=== PATIENT | male | born 1960 | race American Indian/Alaskan Native ===

== ENCOUNTER 2017-07-09 17:26 | Emergency (ER) | payer OTHER ==
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
[2017-07-09] MEDS ORDERED: MOTRIN PO ONE (22:14)
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
[2017-07-10] MEDS ORDERED: BOOSTRIX IM ONE (00:03)
[2017-07-10 00:49] VITALS: BP 172/117
== END 2017-07-10 00:44 | disposition home or self-care (01) ==
LOC: ED 17:26
DX: S81.812A Laceration without foreign body, left lower leg, initial encounter (principal); S50.812A Abrasion of left forearm, initial encounter; I10 Essential (primary) hypertension; I25.2 Old myocardial infarction; E11.9 Type 2 diabetes mellitus without complications; F17.200 Nicotine dependence, unspecified, uncomplicated; V89.0XXA Person injured in unspecified motor-vehicle accident, nontraffic, initial encounter; Y93.89 Activity, other specified; Y92.89 Other specified places as the place of occurrence of the external cause; Y99.8 Other external cause status
CPT/HCPCS: 90471; 90715

== ENCOUNTER 2018-03-04 14:51 | Emergency (ER) | payer MEDICAID ==
--- NOTE | 2018-03-04 15:41 | Emergency Department Report ---
ED Chest Pain HPI - General Chief Complaint: Chest Pain Stated Complaint: CHEST PAIN Time Seen by Provider: 03/04/18 15:31 Source: patient, EMS Mode of arrival: Stretcher Limitations: No Limitations - History of Present Illness Initial Comments: 57-year-old -Polish male presents to the emergency department from home with complaint of some left-sided chest pain that has been going on since last night. The pain radiates up the left side of his neck to the head. It is associated with some shortness of breath and some nausea without vomiting. The patient did not take anything specifically to treat his current symptoms but did take his home medications including a full dose aspirin. He has a past medical history of [id number] diabetes, CHF, COPD, hypertension and coronary artery disease with previous WI and [address] 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 He says that he had a stress test a few months ago down in [place] and everything was normal at that time. - Related Data Previous Rx's Medication Instructions Recorded Last Taken Type Acetaminophen [Tylenol Arthritis] 650 mg PO Q8H 5 Days #15 tablet.er 07/10/17 Unknown Rx Allergies Allergy/AdvReac Type Severity Reaction Status Date / Time No Known Allergies Allergy Unverified 07/09/17 18:45 Heart Score - HEART Score History: Moderately suspicious EKG: Non-specific Age: 45-65 Risk factors: > 3 risk factors or hx of atherosclerotic disease Troponin: < normal limit HEART Score: 5 - Critical Actions Critical Actions: 4-6 pts:12-16.6% risk of adverse cardiac event. Should be admitted ED Review of Systems ROS: Stated complaint: CHEST PAIN Other details as noted in HPI Comment: All other systems reviewed and negative Constitutional: denies: chills, fever Eyes: denies: eye pain, eye discharge, vision change ENT: denies: ear pain, throat pain Respiratory: shortness of breath. denies: cough Cardiovascular: chest pain. denies: edema Gastrointestinal: nausea. denies: abdominal pain, vomiting Genitourinary: denies: urgency, dysuria Musculoskeletal: denies: back pain, myalgia Skin: denies: rash, lesions Neurological: headache. denies: weakness, numbness ED Past Medical Hx - Past Medical History Hx Hypertension: Yes Hx Heart Attack/AMI: Yes (x2 days) Hx Congestive Heart Failure: Yes Hx Diabetes: Yes Hx COPD: Yes - Surgical History Hx Coronary Stent: Yes Additional Surgical History: stent in left leg; and stent in rt leg - Social History Smoking Status: Current Every Day Smoker Substance Use Type: Alcohol - Medications Home Medications: Home Medications Medication Instructions Recorded Confirmed Last Taken Type Acetaminophen [Tylenol Arthritis] 650 mg PO Q8H 5 Days #15 tablet.er 07/10/17 Unknown Rx ED Physical Exam - General Limitations: No Limitations - Other Other exam information: GENERAL: The patient is well-developed well-nourished. HENT: Normocephalic. Atraumatic. Patient has moist mucous membranes. EYES: Extraocular motions are intact. Pupils equal reactive to light bilaterally. NECK: Supple. Trachea is midline. CHEST/LUNGS: Clear to auscultation. There is no respiratory distress noted. HEART/CARDIOVASCULAR: Regular. There is no tachycardia. There is no murmur. ABDOMEN: Abdomen is soft, nontender. Patient has normal bowel sounds. There is no abdominal distention. SKIN: Skin is warm and dry. NEURO: The patient is awake, alert, and oriented. The patient is cooperative. The patient has no focal neurologic deficits. The patient has normal speech. MUSCULOSKELETAL: There is no tenderness or deformity. There is no limitation range of motion. There is no evidence of acute injury. ED Course Vital Signs 03/04/18 03/04/18 03/04/18 15:07 15:11 15:15 Pulse Rate 70 68 Respiratory 27 H 20 23 Rate Blood Pressure 109/65 109/65 O2 Sat by Pulse 96 97 Oximetry 03/04/18 03/04/18 15:30 15:45 Pulse Rate 71 98 H Respiratory 16 17 Rate Blood Pressure 109/65 109/65 O2 Sat by Pulse 96 97 Oximetry ENOCH score - Enoch Score Age > 65: (0) No Aspirin use within the Past 7 Days: (1) Yes 3 or more CAD Risk Factors: (1) Yes 2 or more Angina events in past 24 hrs: (1) Yes Known CAD with more than 50% Stenosis: (0) No Elevated Cardiac Markers: (0) No ST Deviation Greater than 0.5mm: (0) No ENOCH Score: 3 ED Medical Decision Making - Lab Data Result diagrams: 03/04/18 16:18 03/04/18 16:18 - EKG Data -: EKG Interpreted by Al EKG shows normal: sinus rhythm, axis, intervals, QRS complexes (Q waves to the inferior leads), ST-T waves (T-wave inversions to the lateral and inferior leads ) Rate: normal - EKG Data When compared to previous EKG there are: previous EKG unavailable Interpretation: other (sinus rhythm, Q waves to the inferior leads, T-wave inversions to the lateral and inferior leads) - Radiology Data Radiology results: report reviewed EXAM: XR CHEST 1V AP HISTORY: CP TECHNIQUE: Frontal portable view of the chest Comparison: None FINDINGS: There elevation of the left hemidiaphragm. There are areas of pulmonary consolidation in the left lower lung field. Atelectasis versus infiltrate. There is no evidence of pneumothorax or pleural fluid collection. The cardiac silhouette appears to be normal size. The thoracic aorta is unremarkable. The bony structures are notable for evidence of degenerative change of the right glenohumeral joint. IMPRESSION: 1. Appearance of pulmonary consolidation, atelectasis versus infiltrate left lung base. Comparison with previous imaging studies and/or PA and lateral views of the chest may be helpful. Alternatively CT chest may be helpful. 2. Appearance of degenerative change right glenohumeral joint. Transcribed By: ED Dictated By: DIANA VAUGHN MD Electronically Authenticated By: DIANA VAUGHN MD Signed Date/Time: 03/04/18 [id number] EXAM: CT ANGIO CHEST HISTORY: CP, elevated dimer TECHNIQUE: Following administration of IV contrast axial helical imaging was performed through the chest with sagittal and coronal reformatted images and maximum intensity projection images obtained. Comparison: Chest x-ray also performed today FINDINGS: Visualization detail in portions of the chest is somewhat limited by motion artifact. There are areas of pulmonary consolidation with volume loss in the left lower lobe and left lingula most consistent with atelectasis. These correspond to the findings demonstrated on the recent chest x-ray. There is no evidence of pneumothorax or pleural fluid collection. The trachea and bronchi are patent. The heart appears to be enlarged. The thoracic aorta is normal in appearance. There are multiple soft tissue masses in the superior and anterior mediastinum and left periaortic region. The largest of these measures approximately 3.6 centimeters in the maximal axial dimension. There are enlarged left axillary lymph nodes the largest of which measures approximately 2.2 centimeters in the maximal axial dimension. There are no central filling defects to suggest the presence of central pulmonary artery emboli. However, segmental pulmonary artery emboli could be missed or overcalled due to significant motion artifact. The visualized portion the upper abdomen is notable for mild diffuse enlargement of the adrenal glands bilaterally. The bony structures are unremarkable in appearance. IMPRESSION: 1. Study degraded by motion artifact. 2. Multiple soft tissue masses in the superior and anterior mediastinum and left periaortic region and left axillary adenopathy. Differential diagnosis includes a thymic mass with metastatic lymph nodes or a lymphoproliferative disorder/lymphoma. 3. No evidence of central pulmonary artery emboli. However, segmental pulmonary artery emboli could be missed or overcalled due to significant motion artifact. 4. Mild diffuse enlargement of the adrenal glands bilaterally. 5. The heart appears to be enlarged. Transcribed By: ED Dictated By: DIANA VAUGHN MD Electronically Authenticated By: DIANA VAUGHN MD Signed Date/Time: 03/04/181836 - Medical Decision Making This patient with a significant history of coronary artery disease, previous WI and stents presents with some left-sided chest pain it's been going on since last night. EKG does not show any ST elevation WI but does show some Q waves in the inferior leads as well as almost diffuse T-wave inversions and there are no other previous EKGs to compare this to. Patient's labs were mostly unremarkable except for a elevated and equivocal d-dimer. Chest x-ray did not show any obvious pneumonia, pleural effusions, pneumothorax or any other acute process. Because of the elevated d-dimer, CT angiography was done that shows multiple soft tissue masses in the superior and anterior mediastinum, left periaortic region and some adenopathy. This is concerning for a thymic mass, lymphoma, lymphoproliferative disease versus other etiology. The patient's primary care physician and veterinary laboratory technician are multiple hours away in [place] and [facility]. He is planning to establish care with Dr. Astudillo in [place]. Patient says that he had a previous stress test done a few months ago that was negative. However we do not have these results, there is no EKG to compare to with the T-wave inversions throughout the inferior and lateral leads and now the patient has this abnormal CT scan of the chest concerning for possible malignancies. For all these reasons the patient will be admitted to the hospital for further evaluation and will be evaluated by the nighttime hospitalist. - Differential Diagnosis WI, PE, pneumonia, malignancy Critical Care Time: No Critical care attestation.: If time is entered above; I have spent that time in minutes in the direct care of this critically ill patient, excluding procedure time. ED Disposition Clinical Impression: Abnormal CT of the chest, Acute chest pain, History of coronary artery disease Disposition: OP ADMIT IP TO THIS HOSP Is pt being admited?: Yes Condition: Fair Instructions: Chest Pain (ED) Referrals: PRIMARY CARE, [Primary Care Provider] - 3-5 Days Time of Disposition: 19:45
[2018-03-04 16:37] LABS: Basophils % (Auto) 0.7 % (0.0-1.8); Eosinophils # (Auto) 0.1 K/mm3 (0.0-0.4); Eosinophils % (Auto) 2.3 % (0.0-4.3); Hematocrit 43.7 % (35.5-45.6); Hemoglobin 14.4 gm/dl (11.8-15.2); Lymphocytes # (Auto) 1.5 K/mm3 (1.2-5.4); Lymphocytes % (Auto) 35.2 % (13.4-35.0); Mean Corpuscular HGB Conc 33 % (32-34); Mean Corpuscular Hemoglobin 31 pg (28-32); Mean Corpuscular Volume 95 fl (84-94); Monocytes # (Auto) 0.5 K/mm3 (0.0-0.8); Monocytes % (Auto) 11.2 % (0.0-7.3); Platelet Count 279 K/mm3 (140-440); Red Blood Count 4.61 M/mm3 (3.65-5.03); Red Cell Distribution Width 14.5 % (13.2-15.2)
[2018-03-04] MEDS ORDERED: MORPHINE IV ONE ×2 (16:47→17:03)
[2018-03-04 16:48] LABS: INR 0.92 (0.87-1.13)
[2018-03-04 16:49] LABS: Partial Thromboplastin Time 27.1 Sec. (24.2-36.6)
--- NOTE | 2018-03-04 16:49 | XRay Report ---
FINAL REPORT EXAM: XR CHEST 1V AP HISTORY: CP TECHNIQUE: Frontal portable view of the chest Comparison: None FINDINGS: There elevation of the left hemidiaphragm. There are areas of pulmonary consolidation in the left lower lung field. Atelectasis versus infiltrate. There is no evidence of pneumothorax or pleural fluid collection. The cardiac silhouette appears to be normal size. The thoracic aorta is unremarkable. The bony structures are notable for evidence of degenerative change of the right glenohumeral joint. IMPRESSION: 1. Appearance of pulmonary consolidation, atelectasis versus infiltrate left lung base. Comparison with previous imaging studies and/or PA and lateral views of the chest may be helpful. Alternatively CT chest may be helpful. 2. Appearance of degenerative change right glenohumeral joint.
[2018-03-04 16:57] LABS: BUN/Creatinine Ratio 11; Blood Urea Nitrogen 13 mg/dL (9-20); Calcium 9.3 mg/dL (8.4-10.2); Hemolysis Index 14
--- NOTE | 2018-03-04 18:38 | Cat Scan Report ---
FINAL REPORT EXAM: CT ANGIO CHEST HISTORY: CP, elevated dimer TECHNIQUE: Following administration of IV contrast axial helical imaging was performed through the chest with sagittal and coronal reformatted images and maximum intensity projection images obtained. Comparison: Chest x-ray also performed today FINDINGS: Visualization detail in portions of the chest is somewhat limited by motion artifact. There are areas of pulmonary consolidation with volume loss in the left lower lobe and left lingula most consistent with atelectasis. These correspond to the findings demonstrated on the recent chest x-ray. There is no evidence of pneumothorax or pleural fluid collection. The trachea and bronchi are patent. The heart appears to be enlarged. The thoracic aorta is normal in appearance. There are multiple soft tissue masses in the superior and anterior mediastinum and left periaortic region. The largest of these measures approximately 3.6 centimeters in the maximal axial dimension. There are enlarged left axillary lymph nodes the largest of which measures approximately 2.2 centimeters in the maximal axial dimension. There are no central filling defects to suggest the presence of central pulmonary artery emboli. However, segmental pulmonary artery emboli could be missed or overcalled due to significant motion artifact. The visualized portion the upper abdomen is notable for mild diffuse enlargement of the adrenal glands bilaterally. The bony structures are unremarkable in appearance. IMPRESSION: 1. Study degraded by motion artifact. 2. Multiple soft tissue masses in the superior and anterior mediastinum and left periaortic region and left axillary adenopathy. Differential diagnosis includes a thymic mass with metastatic lymph nodes or a lymphoproliferative disorder/lymphoma. 3. No evidence of central pulmonary artery emboli. However, segmental pulmonary artery emboli could be missed or overcalled due to significant motion artifact. 4. Mild diffuse enlargement of the adrenal glands bilaterally. 5. The heart appears to be enlarged.
[2018-03-04 20:50] VITALS: BP 122/76
== END 2018-03-04 20:55 | disposition admitted as inpatient to this hospital (09) ==
LOC: EDBD → ED 14:51
DX: R07.89 Other chest pain (principal); R93.8 Abnormal findings on diagnostic imaging of other specified body structures; I25.10 Atherosclerotic heart disease of native coronary artery without angina pectoris; I11.0 Hypertensive heart disease with heart failure; I50.9 Heart failure, unspecified; I25.2 Old myocardial infarction; E11.9 Type 2 diabetes mellitus without complications; J44.9 Chronic obstructive pulmonary disease, unspecified; F17.200 Nicotine dependence, unspecified, uncomplicated
CPT/HCPCS: 36415; 71045; 71275; 80048; 83880; 84484; 85025; 85379; 85610; 85730; 93005; 93010; 96374; 99285; J2270; Q9967

== ENCOUNTER 2018-06-23 10:21 | Emergency (ER) | payer MEDICAID ==
--- NOTE | 2018-06-23 10:25 | Emergency Department Report ---
HPI - General Time Seen by Provider: 06/23/18 10:21 - HPI HPI: 58-year-old male presents to the emergency department via EMS from home with the complaint of suspicion of stroke. Patient was witnessed to have neurological changes, and last known well time was seen at 9:40 AM. He has a past medical history of COPD, peripheral vascular disease, diabetes, coronary artery disease, CHF. Patient presents with difficulty speaking, right-sided weakness and what appears to be some right-sided neglect. He is currently a poor historian secondary to his current condition. Patient was recently admitted and discharged from [facility] in late May for ACS. ED Past Medical Hx - Past Medical History Hx Hypertension: Yes Hx Heart Attack/AMI: Yes Hx Congestive Heart Failure: No Hx Diabetes: Yes Hx Deep Vein Thrombosis: No Hx Pulmonary Embolism: No Hx Liver Disease: No Hx Asthma: No Hx COPD: Yes Hx Tuberculosis: No - Surgical History Hx Coronary Stent: No Hx Pacemaker: No Hx Internal Defibrillator: No Additional Surgical History: stent in left leg; and stent in rt leg - Social History Smoking Status: Never Smoker - Medications Home Medications: Home Medications Medication Instructions Recorded Confirmed Last Taken Type Albuterol Sulfate [Proventil Hfa] 2 puff IH TID PRN 06/23/18 06/23/18 Unknown History Fluticasone/Salmeterol [Advair 1 each IH BID 06/23/18 06/23/18 Unknown History 250-50 Diskus] HYDROcodone/APAP 10-325 [Ringoes 1 each PO Q6HR PRN 06/23/18 06/23/18 Unknown History 10/325] ED Review of Systems ROS: Stated complaint: NEURO SYPMTOMS Other details as noted in HPI Comment: Unobtainable due to pts medical conditions Physical Exam - Physical Exam Physical Exam: GENERAL: Patient is ill-appearing. HEENT: Normocephalic. Atraumatic. Patient has moist mucous membranes. EYES: Extraocular motions are intact. Pupils are equal and reactive to light bilaterally. NECK: Supple. Trachea is midline. CHEST/LUNGS: Clear to auscultation. There is no respiratory distress noted. HEART/CARDIOVASCULAR: Regular. There is no tachycardia. There is no obvious murmur. ABDOMEN: Abdomen is soft, nontender. Patient has normal bowel sounds. There is no abdominal distention. SKIN: Skin is warm and dry. NEURO: Patient has severe aphasia and some dysarthria. Decreased sensation to the right side of the body. Right-sided hemiparesis. Right-sided nasolabial fold paresis. There is no weakness or pronator drift to the left upper extremity and left lower cavity. MUSCULOSKELETAL: There is no tenderness or deformity. There is no evidence of acute injury. ED Course - Consultations Consultation #1: I have contacted and spoken with the telemedicine neurologist, Dr. Ríos, who is currently evaluating the patient in the room via engine monitor. 06/23/18 10:41 06/23/18 11:[address] Ríos saw the patient she agreed that the patient met criteria for TPA. The patient's was bedside but is not the medical decision maker. The patient's son was on the way and just arrived within the last 3 minutes. However prior to this, we discussed TPA with the patient and the fianc to the best of our ability given the patient's current neurological status. Since the CT shows concern for a dense left MCA lesion/thrombus, and the patient has an NIH stroke scale that is moderate to severe, the decision was made to start the TPA. After the patient's son arrived, Theo, we discussed reasoning for starting the TPA and the patient has already received the bolus. However Theo agrees with the plan and decided not to stop the TPA drip. Dr. Ríos has been in contact with the stroke team at [facility] and we're awaiting communication on whether they will accept the patient for transfer. 06/23/18 11:14 Patient has been accepted for transfer to [facility] by the stroke attending, Dr. Melo. A helicopter has been called for transport. ED Medical Decision Making - Lab Data Result diagrams: 06/23/18 10:32 06/23/18 10:32 - EKG Data -: EKG Interpreted by Mi EKG shows normal: sinus rhythm, axis (left axis deviation), intervals, QRS complexes (nonspecific intraventricular conduction delay), ST-T waves (flattening of T waves and T-wave inversions to the inferior and lateral leads) Rate: normal - EKG Data When compared to previous EKG there are: previous EKG unavailable Interpretation: other (sinus rhythm, left axis deviation, rate of 62 bpm. Nonspecific intraventricular conduction delay. Nonspecific T-wave abnormalities to the lateral leads) - Radiology Data Radiology results: report reviewed CT HEAD WITHOUT CONTRAST: HISTORY: Stroke symptoms. TECHNIQUE: Sequential CT images without contrast. FINDINGS: A hyperdense left MCA is identified on images 21-23 consistent with acute left MCA thrombosis. There is no evidence for hemorrhage or parenchymal findings at this time. Mild diffuse volume loss and chronic white matter changes are noted. A chronic linear infarct in the anterior right basal ganglia measures 2.9 x 0.5 cm in axial plane. Ventricular size is within normal limits. The posterior fossa contents are unremarkable. The calvarium, sinuses and mastoid air cells are within normal limits. IMPRESSION: Hyperdense left MCA consistent with acute left MCA thrombosis. Additional chronic findings as described. - Medical Decision Making Patient presented with acute right-sided neurological deficits including aphasia, decreased sensation, right-sided hemiparesis and right-sided facial droop with a last known well time of about 9:15 to about 9:45 AM, just prior to presentation. The patient was within the TPA window. CT scan of the head without contrast showed an area concerning for a hyperdense left MCA with concern for thrombus. The telemedicine neurologist was contacted as soon as the CT scan was done and saw the patient in a timely manner. Between myself and Dr. Ríos, the decision was made to give the patient TPA and the patient's son later concurred once he reached the hospital. However we did not want to fall out of the TPA window and the patient appeared to have the area for MCA thrombus so TPA was given. Patient's labs show some renal insufficiency, a slightly elevated troponin level. Patient's vital signs were mostly stable throughout the ED course. He had some mild transient hypotension but responded to IV fluid resuscitation. Patient was accepted to [facility] for further evaluation from their stroke team. - Differential Diagnosis CVA, TIA, substance abuse, dysrhythmia Critical Care Time: Yes Critical care time in (mins) excluding proc time.: 45 Critical care attestation.: If time is entered above; I have spent that time in minutes in the direct care of this critically ill patient, excluding procedure time. Critical care time was spent on this patient during his initial evaluation, multiple evaluations, ordering and interpretation of labs and imaging, discussion with the telemedicine neurologist, discussion with the family. Critical Care Time: 45 minutes ED Disposition Clinical Impression: Renal insufficiency, Elevated troponin I level CVA (cerebral vascular accident) Qualifiers: CVA mechanism: thrombosis Precerebral and cerebral artery: middle cerebral artery Laterality of affected vessel: left Qualified Code(s): I63.312 - Cerebral infarction due to thrombosis of left middle cerebral artery Disposition: DC/TX-70 ANOTHER TYPE HLTHCARE Is pt being admited?: No Condition: Serious Referrals: PRIMARY CARE, [Referring] - 3-5 Days Time of Disposition: 12:15 - Assessment Assessment Interval: Baseline - Level of Consciousness 1a. Level of Consciousness: alert/keenly responsive - LOC Questions 1b. LOC Questions: aphasic - LOC Command 1c. LOC Commands: performs tasks correctly - Best Gaze 2. Best Gaze: normal - Visual 3. Visual: no visual loss - Facial Palsy 4. Facial Palsy: partial paralysis - Motor Arm 5b. Motor Arm Right: no movement 5a. Motor Arm Left: no drift - Motor Leg 6b. Motor Leg Right: no movement 6a. Motor Leg Left: no drift - Limb Ataxia 7. Limb Ataxia: absent - Sensory 8. Sensory: severe/total sensory loss - Best Language 9. Best Language: severe aphasia - Dysarthria 10. Dysarthria: severe dysarthria - Extinction and Inattention 11. Extinction/Inattention: profound inattention - Scoring Total Score: 20 Stroke Severity: Moderate to Severe Stroke
--- NOTE | 2018-06-23 10:40 | Cat Scan Report ---
CT HEAD WITHOUT CONTRAST: HISTORY: Stroke symptoms. TECHNIQUE: Sequential CT images without contrast. FINDINGS: A hyperdense left MCA is identified on images 21-23 consistent with acute left MCA thrombosis. There is no evidence for hemorrhage or parenchymal findings at this time. Mild diffuse volume loss and chronic white matter changes are noted. A chronic linear infarct in the anterior right basal ganglia measures 2.9 x 0.5 cm in axial plane. Ventricular size is within normal limits. The posterior fossa contents are unremarkable. The calvarium, sinuses and mastoid air cells are within normal limits. IMPRESSION: Hyperdense left MCA consistent with acute left MCA thrombosis. Additional chronic findings as described. These findings were discussed with Dr. Alfred in the emergency department at 1033 hrs.
[2018-06-23] MEDS ORDERED: NACL 0.9% IV ONE (10:46)
[2018-06-23] MEDS ORDERED: ACTIVASE IV ONE ×2 (10:46)
[2018-06-23 11:01] LABS: Hematocrit 43.5 % (35.5-45.6); Hemoglobin 14.5 gm/dl (11.8-15.2); Mean Corpuscular HGB Conc 33 % (32-34); Mean Corpuscular Volume 95 fl (84-94); Platelet Count 263 K/mm3 (140-440); Red Blood Count 4.61 M/mm3 (3.65-5.03); Red Cell Distribution Width 15.1 % (13.2-15.2)
[2018-06-23 11:13] LABS: INR 0.95 (0.87-1.13)
[2018-06-23 11:14] LABS: Partial Thromboplastin Time 26.7 Sec. (24.2-36.6); Thrombin Time 16.1 Sec. (15.1-19.6)
[2018-06-23] MEDS ORDERED: NACL 0.9% 1000 ML 1,000 ML ONE (11:22)
[2018-06-23 11:39] LABS: Creatine Kinase MB 7.7 ng/mL (0.0-4.0)
[2018-06-23 11:41] LABS: Albumin 4.2 g/dL (3.9-5); Calcium 9.3 mg/dL (8.4-10.2)
[2018-06-23 11:51] LABS: Chol/HDL Ratio 3.97 %
[2018-06-23 11:55] VITALS: BP 107/58
[2018-06-23 11:59] LABS: Basophils % (Manual) 0 % (0.0-1.8); Eosinophils % (Manual) 0 % (0.0-4.3); Total Cells Counted 100
[2018-06-23 12:08] LABS: Anisocytosis 1+; Platelet Estimate Consistent w Auto; Poikilocytosis 1+
== END 2018-06-23 12:19 | disposition other institution (70) ==
LOC: ED 10:21
DX: I63.312 Cerebral infarction due to thrombosis of left middle cerebral artery (principal); N28.9 Disorder of kidney and ureter, unspecified; I11.0 Hypertensive heart disease with heart failure; I50.9 Heart failure, unspecified; I25.2 Old myocardial infarction; E11.9 Type 2 diabetes mellitus without complications; J44.9 Chronic obstructive pulmonary disease, unspecified; Z88.8 Allergy status to other drugs, medicaments and biological substances
CPT/HCPCS: 36415; 37212; 70450; 80053; 80061; 82550; 82553; 84484; 85007; 85025; 85610; 85670; 85730; 86850; 86900; 86901; 93005; 93010; 96374; 99291; G0480; J2997; J7030; 80320

== ENCOUNTER 2018-06-30 11:47 | Outpatient (CLI) | payer MEDICAID ==
--- NOTE | 2018-07-01 13:21 | PET Report ---
PET/CT:06/30/18 11:47:00 CLINICAL: Malignant neoplasm thymus staging. Status post CT guided biopsy of a left axillary lymph node 05/12/18. 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 RADIOPHARMACEUTICAL: 15.019mCi F18-FDG. COMPARISON: CT Chest 05/27/18. No previous PET/CT TECHNIQUE- Following intravenous injection of F-18 FDG and an approximately 60 minute uptake period, CT and PET images from the mid skull to the upper thighs were acquired with the patient in the fasted state. No contrast was administered. The CT protocol used for this PET CT study is designed for attenuation correction and anatomic localization of PET abnormalities. This assistant passenger locomotive engineer CT is not desired to produce and cannot replace, [id number] diagnostic CT scans with specific imaging protocols for different body parts and indications. Plasma glucose at the time of this test: 93 g/dl. The standardized uptake values (SUV) are normalized to patient body weight and indicate the highest activity concentration (SUV max) in a given disease site. FINDINGS: Brain--Physiologic FDG uptake in the visualized regions of the brain. Neck--Physiologic FDG uptake in mucosal structures . Multiple FDG avid left supraclavicular lymph nodes. The most superior of at least 3 lymph nodes measures 1.3 x 1.4 cm with SUV 13.3. No jugular chain lymphadenopathy. Chest--A poorly marginated FDG avid anterior mediastinal mass measures 4.7 x 4.4 x 8.5 cm with SUV 23.2. The mass extends from the thoracic inlet to the level of the main pulmonary artery.Physiologic FDG uptake in mediastinal blood pool and myocardium. Lungs--No abnormal uptake. Subsegmental atelectasis of left lower lobe and milder platelike atelectasis of the left upper lobe. No pulmonary nodule or mass. Pleura/pericardium--No abnormal uptake. Thoracic nodes--Extensive FDG avid left axillary lymphadenopathy. The most inferior left axillary lymph node measures 2.8 x 2.4 cm with SUV 19.6. A line of lymph nodes extends approximately 8 cm along the left rib cage. Hepatobiliary--No abnormal uptake. Liver background SUV mean, as a reference for comparing FDG studies, is 4.8 . No liver mass. Spleen--The spleen is normal size with no abnormal uptake. Pancreas--No abnormal uptake. Adrenal Glands--No abnormal uptake. Kidneys/Ureters/Bladder--No abnormal uptake. Abdominopelvic Nodes--No abnormal uptake. Soft tissue stranding in the right groin adjacent to the femoral artery and vein and mild FDG uptake with SUV 5.5. Bowel/Peritoneum/Mesentery--No abnormal uptake. Pelvic organs--No abnormal uptake. Bones/Soft Tissues--Several FDG avid bone lesions are not apparent on CT. These include a small focal FDG avid lesion of the right proximal humerus near the neck with SUV 15.3, a 2 cm FDG avid lesion of the right iliac bone with SUV 10.6, a 1.5 cm FDG avid lesion of the iliac wing with SUV 6.2 and a subcentimeter FDG avid lesion of the left posterior acetabulum with SUV 6.4. IMPRESSION- 1. An 8.5 cm FDG avid thymic mass is consistent with a primary thymic carcinoma. 2. Left supraclavicular metastatic lymphadenopathy and extensive left axillary metastatic lymphadenopathy. 3. Several FDG avid skeletal lesions are consistent with metastases which are only apparent on PET imaging. 4. No evidence of pulmonary or hepatic metastasis. 5. FDG uptake in the right groin may be related to a benign process. The stranding in the groin suggests that there may have been a recent groin catheter or arterial or venous puncture.
== END 2018-06-30 11:48 | disposition home or self-care (01) ==
LOC: PET 11:47
PROVIDERS: ATTEND Internal Medicine Hematology & Oncology
DX: C37 Malignant neoplasm of thymus (principal); R59.1 Generalized enlarged lymph nodes; I10 Essential (primary) hypertension; E11.9 Type 2 diabetes mellitus without complications; E78.5 Hyperlipidemia, unspecified; J44.9 Chronic obstructive pulmonary disease, unspecified; E66.01 Morbid (severe) obesity due to excess calories; Z87.891 Personal history of nicotine dependence
CPT/HCPCS: 78815; 82962; A9552

== ENCOUNTER 2018-09-10 13:15 | Emergency (ER) | payer MEDICAID ==
--- NOTE | 2018-09-10 14:04 | Emergency Department Report ---
Blank Doc - Documentation Documentation: Pt with left arm swelling x 1week ago on/off. Pain in left arm. SOB and lt rib pain. Pt here reports that That he was discharge from here 3 weeks ago. Poor historian O Lungs- coarse and wheezing A/P wheezing swelling to left arm SOB Elevated BP EKG CXR Duoneb Labs Doppler
[2018-09-10] MEDS ORDERED: DUONEB *Not for PRN Use IH ONE ×2 (14:26→20:22)
--- NOTE | 2018-09-10 15:28 | Vascular Lab Report ---
PROCEDURE: VL VENOUS DUPLEX UE LT HISTORY: swelleng pain to LUE FINDINGS: Real-time ultrasound of the left arm was performed using grayscale and color Doppler images . These images demonstrate deep venous thrombus of the left axillary vein. No DVT is seen in the left internal jugular, left subclavian, or left brachial veins. No superficial venous thrombosis seen in the cephalic or basilic veins. IMPRESSION: Deep venous thrombus of left axillary vein This document is electronically signed by Danny Fernandes MD., September 10 2018 03:26:45 PM ET
[2018-09-10 16:15] LABS: INR 1.06 (0.87-1.13)
--- NOTE | 2018-09-10 16:24 | XRay Report ---
PROCEDURE: XR CHEST ROUTINE 2V TECHNIQUE: 2 views of the chest HISTORY: sob/wheezing COMPARISONS: 07/25/2018 not available for direct comparison, 05/27/2018 FINDINGS: Heart size upper limits normal. Mild elevation left hemidiaphragm with platelike scarring or atelectasis at the left lung base. Coarsening of bronchovascular interstitium in the lungs. No definite pleural effusion. The right cost ophrenic angle is clipped on the lateral projection. Degenerative spondylitic change dorsal vertebral bodies. IMPRESSION: Coarsened bronchovascular interstitium. Volume loss left lung base with elevated left hemidiaphragm a nd platelike atelectasis. This coarsened interstitium is a new finding compared with the 2018 exam. M ay represent interstitial infiltrate. This document is electronically signed by Zoila De La Torre MD., September 10 2018 04:22:31 PM ET
[2018-09-10 16:25] LABS: Basophils % (Auto) 0.5 % (0.0-1.8); Eosinophils # (Auto) 0.1 K/mm3 (0.0-0.4); Eosinophils % (Auto) 2.2 % (0.0-4.3); Hematocrit 38.6 % (35.5-45.6); Hemoglobin 12.9 gm/dl (11.8-15.2); Lymphocytes # (Auto) 1.2 K/mm3 (1.2-5.4); Lymphocytes % (Auto) 28.5 % (13.4-35.0); Mean Corpuscular HGB Conc 33 % (32-34); Mean Corpuscular Volume 93 fl (84-94); Monocytes # (Auto) 0.6 K/mm3 (0.0-0.8); Monocytes % (Auto) 13.5 % (0.0-7.3); Platelet Count 379 K/mm3 (140-440); Red Blood Count 4.15 M/mm3 (3.65-5.03); Red Cell Distribution Width 14.5 % (13.2-15.2)
[2018-09-10 16:30] LABS: Alanine Aminotransferase 14 units/L (7-56); Albumin 4.3 g/dL (3.9-5); BUN/Creatinine Ratio 12; Blood Urea Nitrogen 11 mg/dL (9-20); Calcium 9.7 mg/dL (8.4-10.2); Hemolysis Index 2
[2018-09-10] MEDS ORDERED: ELIQUIS PO ONE (16:35)
--- NOTE | 2018-09-10 16:59 | Emergency Department Report ---
HPI - General Chief Complaint: Extremity Problem,Nontraumatic Time Seen by Provider: 09/10/18 13:55 - HPI HPI: 58-year-old -[place] male presents to the emergency department with a 2 week history of left upper extremity pain and swelling that he says occurs intermittently or ebbs and flows. He denies any chest pain, back pain, shortness of breath. He has not taken anything for his symptoms prior to presentation. The patient was here in mid-July after having an ischemic stroke. That left him with some aphasia that is still apparent during examination and thus the patient is a poor historian. There is some record of the patient being on Eliquis but the patient is unable to verify this name but says that he takes all of the medications that were given to him by the doctors. However, I did speak with Amy Ruelas, who is listed as the "person to notify" and she says that she lives with him and gives him all of his medications and she has been giving the anticoagulation compliantly. She also says that he has been followin g up with the bag shaker/oncologist, Dr. Elizabeth. 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 Miss Ruelas also says that the patient is now on hospice. ED Past Medical Hx - Past Medical History Hx Hypertension: Yes Hx Heart Attack/AMI: Yes Hx Congestive Heart Failure: No Hx Diabetes: Yes Hx Deep Vein Thrombosis: No Hx Pulmonary Embolism: No Hx Liver Disease: No Hx Asthma: No Hx COPD: Yes Hx Tuberculosis: No - Surgical History Hx Coronary Stent: No Hx Pacemaker: No Hx Internal Defibrillator: No Additional Surgical History: stent in left leg; and stent in rt leg - Social History Smoking Status: Current Every Day Smoker Substance Use Type: None - Medications Home Medications: Home Medications Medication Instructions Recorded Confirmed Last Taken Type Albuterol Sulfate [Proventil Hfa] 2 puff IH TID PRN 06/23/18 07/25/18 Unknown History Fluticasone/Salmeterol (Nf) 1 each IH BID 06/23/18 07/25/18 Unknown History [Advair 250-50 Diskus (Nf)] HYDROcodone/APAP 10-325 [Trion 1 each PO Q6HR PRN 06/23/18 07/25/18 Unknown History 10-325 mg TAB] Albuterol Sulfate [Albuterol 0.63% 0.63 mg IH TID PRN 07/25/18 07/25/18 Unknown History NEBS] Apixaban [Eliquis] 5 mg PO BID 60 Days tablet 07/30/18 Unknown Rx Apixaban [Eliquis] 10 mg PO Q12HR 7 Days tablet 07/30/18 Unknown Rx AtorvaSTATin 80 mg PO DAILY 07/30/18 07/30/18 Unknown History Coreg 6.25 mg PO DAILY 07/30/18 07/30/18 Unknown History Famotidine [Pepcid] 20 mg PO BID #60 tablet 07/30/18 Unknown Rx Prednisone [predniSONE 5 mg (6-Day 5 mg PO .TAPER #1 tab.ds.pk 07/30/18 Unknown Rx Pack, 21 Tabs)] ED Review of Systems ROS: Stated complaint: L ARM SWOLLEN Other details as noted in HPI Comment: All other systems reviewed and negative Constitutional: denies: chills, fever Eyes: denies: eye pain, vision change ENT: denies: ear pain, throat pain Respiratory: denies: cough, shortness of breath Cardiovascular: edema. denies: chest pain, palpitations Gastrointestinal: denies: abdominal pain, vomiting Genitourinary: denies: dysuria, discharge Musculoskeletal: myalgia. denies: back pain Skin: denies: rash, lesions Neurological: denies: headache, weakness Physical Exam - Physical Exam Vital Signs: Vital Signs 09/10/18 13:33 Temperature 99.5 F Pulse Rate 109 H Respiratory 22 Rate Blood Pressure 137/102 O2 Sat by Pulse 95 Oximetry Physical Exam: GENERAL: The patient is well-developed well-nourished. HEENT: Normocephalic. Atraumatic. Patient has moist mucous membranes. EYES: Extraocular motions are intact. Pupils are equal and reactive to light bilaterally. NECK: Supple. Trachea is midline. CHEST/LUNGS: Clear to auscultation. There is no respiratory distress noted. HEART/CARDIOVASCULAR: Regular. There is no tachycardia. There is no obvious murmur. ABDOMEN: Abdomen is soft, nontender. Patient has normal bowel sounds. There is no abdominal distention. SKIN: There is mild to moderate nonpitting swelling of the left upper extremity. No lesions, skin color change, warmth. NEURO: The patient is awake, alert, and oriented. The patient is cooperative. The patient has no focal neurologic deficits. The patient has normal speech. MUSCULOSKELETAL: Mild tenderness to palpation to the proximal left upper extremity. There is no limitation range of motion. There is no evidence of acute injury. ED Course Vital Signs 09/10/18 13:33 Temperature 99.5 F Pulse Rate 109 H Respiratory 22 Rate Blood Pressure 137/102 O2 Sat by Pulse 95 Oximetry - Consultations Consultation #1: 09/11/18 00:08 I spoke with the vascular physician on-call, Dr. Sutton, says that the patient requires anticoagulation but otherwise there is no need for admission or any type of vascular intervention for this left axillary vein DVT. ED Medical Decision Making - Lab Data Result diagrams: 09/10/18 15:18 09/10/18 15:18 - EKG Data -: EKG Interpreted by Mo EKG shows normal: sinus rhythm (PVCs), axis (left axis deviation), intervals (prolonged QTc interval), QRS complexes (Q waves in the inferior leads), ST-T waves Rate: normal - EKG Data When compared to previous EKG there are: previous EKG unavailable Interpretation: other (sinus rhythm with PVCs, left axis deviation, prolonged QTc interval, Q wave inferiorly) - Radiology Data Radiology results: report reviewed PROCEDURE: XR CHEST ROUTINE 2V TECHNIQUE: 2 views of the chest HISTORY: sob/wheezing COMPARISONS: 07/25/2018 not available for direct comparison, 05/27/2018 FINDINGS: Heart size upper limits normal. Mild elevation left hemidiaphragm with platelike scarring or atelectasis at the left lung base. Coarsening of bronchovascular interstitium in the lungs. No definite pleural effusion. The right costophrenic angle is clipped on the lateral projection. Degenerative spondylitic change dorsal vertebral bodies. IMPRESSION: Coarsened bronchovascular interstitium. Volume loss left lung base with elevated left hemidiaphragm and platelike atelectasis. This coarsened interstitium is a new finding compared with the 2018 exam. May represent interstitial infiltrate. This document is electronically signed by Zoila De La Torre MD., September 10 2018 04:22:31 PM ET Transcribed By: MP Dictated By: ZOILA DE LA TORRE Electronically Authenticated By: ZOILAODETTE DE LA TORRE Signed Date/Time: 09/10/18 1624 PROCEDURE: VL VENOUS DUPLEX UE LT HISTORY: swelleng pain to LUE FINDINGS: Real-time ultrasound of the left arm was performed using grayscale and color Doppler images. These images demonstrate deep venous thrombus of the left axillary vein. No DVT is seen in the left internal jugular, left subclavian, or left brachial veins. No superficial venous thrombosis seen in the cephalic or basilic veins. IMPRESSION: Deep venous thrombus of left axillary vein This document is electronically signed by Danny Fernandes MD., September 10 2018 03:26:45 PM ET Transcribed By: KIRAN Dictated By: DANNY FERNANDES MD Electronically Authenticated By: DANNY FERNANDES MD Signed Date/Time: 09/10/18 1528 PROCEDURE: CT ANGIO CHEST TECHNIQUE: Following administration of IV contrast axial helical imaging was performed through the chest with sagittal and coronal reformatted images and maximum intensity projection images obtained. DLP: 1119.63 HISTORY: Left arm DVT, SOB COMPARISONS: CT angiogram chest dated May 08, 2018. FINDINGS: Visualization of fine detail in portions of the chest is significantly limited by motion artifact. There are areas of linear pulmonary consolidation with volume loss in the left lung base which may represent areas of atelectasis. There are 2 discrete nodular densities in the left lower lobe that measure approximately 8.4 mm and 6.5 mm in size. These were not clearly demonstrated on the previous study. There has been interval increase in the size of the superior and anterior mediastinal mass which now measures approximately 6.2 cm (AP) by 5.7 cm (lateral) by 9.7 cm (crani ocaudal) in size. There has been interval increase in the size of the numerous enlarged lymph nodes in the left axillary region. The heart is enlarged. The thoracic aorta is normal caliber and without evidence of dissection.. There is displacement of the trachea to the right by the mediastinal mass. The trachea and bronchi are patent. No filling defects are demonstrated within the central pulmonary arteries to suggest the presence of central pulmonary artery emboli. However, segmental pulmonary artery emboli could be missed or overcalled due to significant motion artifact. The visualized portion of the upper abdomen is unremarkable. The bony structures are notable for spondylitic change in the visualized portion of the lumbar spine with moderate to marked canal stenosis in the upper lumbar spine. IMPRESSION: 1. Study significantly degraded by motion artifact. 2. No evidence of central pulmonary artery emboli. However, segmental pulmonary artery emboli could be missed or overcalled due to significant motion artifact. 3. Interval increase in size of mediastinal mass, interval increase in size of left axillary lymph nodes and interval development of 2 discrete nodular densities in the left lower lobe. 4. Cardiomegaly. 5. Spondylitic change lumbar spine with moderate to marked canal stenosis in the upper lumbar spine. This document is electronically signed by Whitney Gross MD., September 10 2018 08:15:01 PM ET Transcribed By: ED Dictated By: WHITNEY GROSS MD Electronically Authenticated By: WHITNEY GROSS MD Signed Date/Time: 09/10/182015 - Medical Decision Making This patient presents to the emergency department with a complaint of a 2 week history of some left upper extremity pain and swelling. He had a left upper extremity venous Doppler ultrasound that shows an acute left axillary vein DVT. I spoke with the vascular surgeon who recommends continued anticoagulation but otherwise there is no acute intervention necessary and he can follow up outpatient. I did a CT angiography of the chest to make sure there were no signs of any pulmonary embolism. He did not have any PE, dissection, aneurysm, but does show an interval increase in his mediastinal mass. Positive patient's labs are mostly unremarkable. Vital signs stable throughout his ED course. Patient is asking for discharge home. He is on Eliquis and gets the medication compliantely. He has been instructed to follow-up with his primary care physician and bag shaker/oncologist, to continue with the anticoagulation, and to return to the emergency Department with any worsening of his symptoms or any acute distress. - Differential Diagnosis DVT, cellulitis, venous stasis, PE Critical Care Time: No Critical care attestation.: If time is entered above; I have spent that time in minutes in the direct care of this critically ill patient, excluding procedure time. ED Disposition Clinical Impression: DVT of axillary vein, acute left, Mediastinal mass Disposition: - TO HOME OR SELFCARE Is pt being admited?: No Condition: Stable Instructions: Deep Venous Thrombosis (ED) Additional Instructions: Continue your Eliquis for anticoagulation. Follow-up with your hematol ogist/oncologist. I have also given a referral for vascular surgery to follow up regarding the blood clot in your left arm. Return to the emergency Department with any worsening of her symptoms, development of shortness of breath or chest pain, with any acute distress. Referrals: HUMZA POST MD [Staff Physician] - KLAUS JERRY MD [Staff Physician] - GLORIA Time of Disposition: 20:36
[2018-09-10 17:44] LABS: Bilirubin,Urine NEG (Negative); Blood,Urine NEG (Negative); Color,Urine Yellow (Yellow); Mucus,Urine FEW /HPF; Protein,Urine <15 mg/dL mg/dL (Negative); WBC,Urine < 1.0 /HPF (0.0-6.0)
--- NOTE | 2018-09-10 20:16 | Cat Scan Report ---
PROCEDURE: CT ANGIO CHEST TECHNIQUE: Following administration of IV contrast axial helical imaging was performed through the c hest with sagittal and coronal reformatted images and maximum intensity projection images obtained. DLP: 1119.63 HISTORY: Left arm DVT, SOB COMPARISONS: CT angiogram chest dated May 08, 2018. FINDINGS: Visualization of fine detail in portions of the chest is significantly limited by motion artifact. There are areas of linear pulmonary consolidation with volume loss in the left lung base which may re present areas of atelectasis. There are 2 discrete nodular densities in the left lower lobe that measure approximately 8.4 mm and 6 .5 mm in size. These were not clearly demonstrated on the previous study. There has been interval increase in the size of the superior and anterior mediastinal mass which now measures approximately 6.2 cm (AP) by 5.7 cm (lateral) by 9.7 cm (craniocaudal) in size. There has been interval increase in the size of the numerous enlarged lymph nodes in the left axillar y region. The heart is enlarged. The thoracic aorta is normal caliber and without evidence of dissection.. There is displacement of the trachea to the right by the mediastinal mass. The trachea and bronchi ar e patent. No filling defects are demonstrated within the central pulmonary arteries to suggest the presence of central pulmonary artery emboli. However, segmental pulmonary artery emboli could be missed or overca lled due to significant motion artifact. The visualized portion of the upper abdomen is unremarkable. The bony structures are notable for spondylitic change in the visualized portion of the lumbar spine with moderate to marked canal stenosis in the upper lumbar spine. IMPRESSION: 1. Study significantly degraded by motion artifact. 2. No evidence of central pulmonary artery emboli. However, segmental pulmonary artery emboli could b e missed or overcalled due to significant motion artifact. 3. Interval increase in size of mediastinal mass, interval increase in size of left axillary lymph no collette and interval development of 2 discrete nodular densities in the left lower lobe. 4. Cardiomegaly. 5. Spondylitic change lumbar spine with moderate to marked canal stenosis in the upper lumbar spine. This document is electronically signed by Whitney Gross MD., September 10 2018 08:15:01 PM ET
[2018-09-10 21:54] VITALS: BP 137/79
== END 2018-09-10 21:54 | disposition home or self-care (01) ==
LOC: ED 13:15
DX: I82.A12 Acute embolism and thrombosis of left axillary vein (principal); R22.2 Localized swelling, mass and lump, trunk; I10 Essential (primary) hypertension; I25.2 Old myocardial infarction; E11.9 Type 2 diabetes mellitus without complications; J44.9 Chronic obstructive pulmonary disease, unspecified; F17.200 Nicotine dependence, unspecified, uncomplicated; Z79.899 Other long term (current) drug therapy; Z88.8 Allergy status to other drugs, medicaments and biological substances
CPT/HCPCS: 36415; 71046; 71275; 80053; 81001; 83880; 85025; 85610; 85730; 93005; 93010; 93971; 94640; 99285; Q9967

== ENCOUNTER 2018-11-13 11:32 | Emergency (ER) | payer MEDICAID ==
[2018-11-13 12:11] LABS: Basophils % (Auto) 0.5 % (0.0-1.8); Eosinophils % (Auto) 0.7 % (0.0-4.3); Hematocrit 32.6 % (35.5-45.6); Hemoglobin 10.6 gm/dl (11.8-15.2); Lymphocytes # (Auto) 0.8 K/mm3 (1.2-5.4); Lymphocytes % (Auto) 16.5 % (13.4-35.0); Mean Corpuscular HGB Conc 32 % (32-34); Mean Corpuscular Volume 88 fl (84-94); Monocytes # (Auto) 0.7 K/mm3 (0.0-0.8); Platelet Count 367 K/mm3 (140-440); Red Blood Count 3.73 M/mm3 (3.65-5.03); Red Cell Distribution Width 15.6 % (13.2-15.2)
[2018-11-13] MEDS ORDERED: NACL 0.9% 250ML 250 ML IV ONE (12:20)
[2018-11-13] MEDS ORDERED: SUBLIMAZE IV ONE ×2 (12:20→13:00)
--- NOTE | 2018-11-13 12:21 | Emergency Department Report ---
ED General Adult HPI - General Chief complaint: Chest Pain Stated complaint: CHEST PAIN Time Seen by Provider: 11/13/18 11:53 Source: patient, family, EMS (ems notes not available at time of chart dictation), RN notes reviewed, old records reviewed Mode of arrival: Stretcher Limitations: Other (the patient is a poor historian. The patient has poor memory and recollection of his medical history. Much of the history is obtained from the patient's son, and review of old medical records) - History of Present Illness Initial comments: Primary care Dr.: Dr Ivy Cardiology: Dr Llanos Hematology oncology: Dr Lal This is a 58-year-old woman. The patient has a history of left upper extremity axillary vein DVT, supposed to be on systemic anticoagulation. He is not sure if he is taking systemic anticoagulation. His son is trying to clarify this point for me. 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 He is not sure if he is getting chemotherapy. The patient had a CT scan of the chest August 2018, at this facility, which did not demonstrate any significant large pulmonary embolus. The patient had a nuclear stress test 2017, which demonstrated no ischemia or infarct. The patient presents to the emergency room today with complaint of nontraumatic left-sided thoracic pain, left lower back pain, and left flank pain. Apparently, this pain is intermittent. It comes and goes. It is similar to pain that he's had in the past. He denies vomiting, diaphoresis. He may may not have a cough. He is not certain. He initially states that he is not having dysuria, but he thinks he might be having difficulty with urination. He is not certain. He has has chronic left-sided knee pain. Left-sided thoracic, chest wall pain and flank pain is intermittent, radiates proximally to distal, and vice versa, but apparently has been going on for a few weeks to a few months. The patient's son indicates that his left upper extremity appears to be less swollen than when compared to prior. -: Gradual, week(s) Location: chest, abdomen, left, lower extremity Radiation: other Severity scale (0 -10): 2 Quality: other Consistency: other Improves with: other Worsens with: other Associated Symptoms: other - Related Data Home Medications Medication Instructions Recorded Confirmed Last Taken Albuterol Sulfate [Proventil Hfa] 2 puff IH TID PRN 06/23/18 11/13/18 Unknown Albuterol Sulfate [Albuterol 0.63% 0.63 mg IH TID PRN 07/25/18 11/13/18 Unknown NEBS] AtorvaSTATin [Lipitor] 20 mg PO QHS 11/13/18 11/13/18 11/12/18 Furosemide [Lasix] 20 mg PO QDAY 11/13/18 11/13/18 11/13/18 Potassium Chloride [K-Dur] 10 meq PO QDAY 11/13/18 11/13/18 11/13/18 metFORMIN [Glucophage] 500 mg PO BID 11/13/18 11/13/18 11/12/18 traZODone [Desyrel] 50 mg PO QHS 11/13/18 11/13/18 11/12/18 Previous Rx's Medication Instructions Recorded Last Taken Type Apixaban [Eliquis] 5 mg PO BID 60 Days tablet 07/30/18 11/13/18 Rx Allergies Allergy/AdvReac Type Severity Reaction Status Date / Time dexamethasone [From Decadron] Allergy Itching Verified 07/25/18 01:44 ED Review of Systems ROS: Stated complaint: CHEST PAIN Other details as noted in HPI Constitutional: malaise. denies: fever Eyes: denies: eye discharge Respiratory: cough Cardiovascular: chest pain (left-sided chest wall pain) Gastrointestinal: abdominal pain Genitourinary: dysuria Musculoskeletal: back pain, arthralgia, myalgia Skin: denies: lesions Neurological: weakness Psychiatric: anxiety ED Past Medical Hx - Past Medical History Previous Medical History?: Yes Hx Hypertension: Yes Hx Heart Attack/AMI: Yes (x 2) Hx Congestive Heart Failure: No Hx Diabetes: Yes Hx Deep Vein Thrombosis: No Hx Pulmonary Embolism: No Hx Liver Disease: No Hx of Cancer: Yes (terminal throat cancer) Hx Asthma: No Hx COPD: Yes Hx Tuberculosis: No - Surgical History Past Surgical History?: Yes Hx Coronary Stent: No Hx Pacemaker: No Hx Internal Defibrillator: No Additional Surgical History: stent in left leg; and stent in rt leg - Social History Smoking Status: Unknown if ever smoked - Medications Home Medications: Home Medications Medication Instructions Recorded Confirmed Last Taken Type Albuterol Sulfate [Proventil Hfa] 2 puff IH TID PRN 06/23/18 11/13/18 Unknown History Albuterol Sulfate [Albuterol 0.63% 0.63 mg IH TID PRN 07/25/18 11/13/18 Unknown History NEBS] Apixaban [Eliquis] 5 mg PO BID 60 Days tablet 07/30/18 11/13/18 11/13/18 Rx AtorvaSTATin [Lipitor] 20 mg PO QHS 11/13/18 11/13/18 11/12/18 History Furosemide [Lasix] 20 mg PO QDAY 11/13/18 11/13/18 11/13/18 History Potassium Chloride [K-Dur] 10 meq PO QDAY 11/13/18 11/13/18 11/13/18 History metFORMIN [Glucophage] 500 mg PO BID 11/13/18 11/13/18 11/12/18 History traZODone [Desyrel] 50 mg PO QHS 11/13/18 11/13/18 11/12/18 History ED Physical Exam - General Limitations: No Limitations General appearance: alert, anxious - Head Head exam: Present: atraumatic, normocephalic - Eye Eye exam: Present: normal appearance, EOMI. Absent: nystagmus - ENT ENT exam: Present: normal exam, normal orophraynx, mucous membranes moist, normal external ear exam - Neck Neck exam: Present: normal inspection, full ROM. Absent: tenderness, meningismus - Respiratory Respiratory exam: Present: normal lung sounds bilaterally, chest wall tenderness. Absent: respiratory distress, wheezes, stridor - Cardiovascular Cardiovascular Exam: Present: regular rate, normal rhythm, normal heart sounds. Absent: bradycardia, tachycardia, irregular rhythm, systolic murmur, diastolic murmur, rubs, gallop - GI/Abdominal GI/Abdominal exam: Present: soft. Absent: distended, tenderness, guarding, rebound, rigid, pulsatile mass - Rectal Rectal exam: Present: deferred - Extremities Exam Extremities exam: Present: normal inspection (the left upper extremity is swollen with some edema. Compartments are soft and nontender. As per family, this appears to be improved when compared to prior.), full ROM, other (2+ pulses noted in the bilateral upper, lower extremities. Compartments soft. No long bony tenderness. The pelvis is stable.) - Back Exam Back exam: Present: normal inspection, full ROM. Absent: tenderness, CVA tenderness (R), CVA tenderness (L), paraspinal tenderness, vertebral tenderness - Neurological Exam Neurological exam: Present: alert, oriented X3, other (2+ pulses noted in the bilateral upper, lower extremities. Compartments soft. No long bony tenderness. The pelvis is stable.). Absent: motor sensory deficit - Psychiatric Psychiatric exam: Present: anxious - Skin Skin exam: Present: warm, dry, intact, normal color. Absent: rash ED Course Vital Signs 11/13/18 11/13/18 11/13/18 11:40 11:45 11:47 Temperature 98.3 F 98.3 F Pulse Rate 95 H 90 83 Respiratory 13 15 20 Rate Blood Pressure 100/58 108/55 Blood Pressure 108/55 [Left] Blood Pressure [Right] O2 Sat by Pulse 96 98 Oximetry 11/13/18 11/13/18 11/13/18 12:00 12:10 12:15 Temperature Pulse Rate 94 H 91 H Respiratory 16 20 14 Rate Blood Pressure 98/54 98/54 Blood Pressure [Left] Blood Pressure [Right] O2 Sat by Pulse 92 97 97 Oximetry 11/13/18 11/13/18 11/13/18 12:30 12:45 13:01 Temperature Pulse Rate 87 83 86 Respiratory 22 13 15 Rate Blood Pressure 110/55 98/54 110/65 Blood Pressure 98/54 [Left] Blood Pressure [Right] O2 Sat by Pulse 98 97 96 Oximetry 11/13/18 11/13/18 11/13/18 13:15 13:42 13:45 Temperature Pulse Rate 86 88 84 Respiratory 13 17 15 Rate Blood Pressure 110/65 110/65 118/94 Blood Pressure [Left] Blood Pressure [Right] O2 Sat by Pulse 93 96 Oximetry 11/13/18 11/13/18 11/13/18 13:55 14:00 14:15 Temperature Pulse Rate 84 84 85 Respiratory 18 17 15 Rate Blood Pressure 114/70 110/65 Blood Pressure [Left] Blood Pressure 118/94 [Right] O2 Sat by Pulse 98 97 100 Oximetry 11/13/18 11/13/18 11/13/18 14:30 14:45 15:00 Temperature Pulse Rate 82 82 77 Respiratory 18 31 H 13 Rate Blood Pressure 124/67 114/70 107/65 Blood Pressure [Left] Blood Pressure [Right] O2 Sat by Pulse 100 71 L 100 Oximetry - Reevaluation(s) Reevaluation #1: 11/13/18 12:59 Differential diagnosis, including but not limited to: Costochondritis, pneumonia, acute coronary syndrome, pulmonary embolus, retroperitoneal hematoma, chronic muscle skeletal pain, worsening stage IV squama cell carcinoma Assessment and plan: 58-year-old gentleman with numerous chronic medical conditions, who is unfortunately a very poor historian, with a primary complaint of nontraumatic left sided flank pain, thoracic wall pain, left-sided abdominal pain and knee pain. The patient is afebrile with reassuring vital signs. He has what appears to be an unremarkable physical exam, with the exception of left upper extremity swelling and edema, which has been noted on prior documentation, and as per family, is improved from prior. His vascular risk profile is reviewed and appreciated, but given atypical nature of his symptoms, and duration of symp toms, unchanged EKG, negative nuclear stress test February 2018, and prior cardiology consultations, I think it is very unlikely that the patient is experiencing an atypical presentation of acute coronary syndrome. I have requested that family clarify his medications, we will treat his pain, obtain EKG 2, troponin 2, urinalysis, CT scan of the chest, abdomen, pelvis. Reevaluation #2: 11/13/18 13:23 2 ines and darvin are at the bedside. As per their report, the patient does follow with Dr. Lal, but as per family, the patient's cancer is untreatable, and he is currently on home hospice. He does indeed take systemic anticoagulation, eliquis, and his fianc assures me that he is taking it consistently. The patient is now sleeping comfortably, and his pressure, and he does not appear to be in any acute distress. Currently, advanced directives and goals of care have not been clarified. I had an extensive discussion with the 2 ines and darvin, regarding full code versus DO NOT RESUSCITATE/palliative care. Apparently, this has not been discussed with the family, as per the verbal report. Currently, it appears the patient is full code. CT scan interpretation pending at this time Reevaluation #3: 11/13/18 13:37 [facility] Rafaela Tellez LMSW OFFICE: [phone] MOBILE: [phone] [facility] Reevaluation #4: 11/13/18 15:08 EKG appears to be unchanged 2. CT scan of the abdomen and pelvis suggests a left-sided pleural effusion. Troponin is negative 2. Patient sleeping comfortably and does not appear to be in any acute distress. Isolated hypoxemic events noted to 71%, likely related to artifact. Reevaluation #5: 11/13/18 15:55 CT scan of the chest shows no large pulmonary embolus. Expect sequela of malignancy are demonstrated. I left a voicemail with the patient's hospice cryptic, back to discuss goals of care, initiate conversation for advanced directives, however, they have not called him back. However, the patient has not been found to have any condition that would require hospitalization at this time. He is likely experiencing the natural history of his cancer, unfortunately. ED Medical Decision Making - Lab Data Result diagrams: 11/13/18 12:00 11/13/18 12:00 Vital Signs 11/13/18 11/13/18 11/13/18 11:40 11:45 11:47 Temperature 98.3 F 98.3 F Pulse Rate 95 H 90 83 Respiratory 13 15 20 Rate Blood Pressure 100/58 108/55 Blood Pressure 108/55 [Left] O2 Sat by Pulse 96 98 Oximetry 11/13/18 11/13/18 11/13/18 12:00 12:10 12:15 Temperature Pulse Rate 94 H 91 H Respiratory 16 20 14 Rate Blood Pressure 98/54 98/54 Blood Pressure [Left] O2 Sat by Pulse 92 97 97 Oximetry 11/13/18 12:30 Temperature Pulse Rate 87 Respiratory 22 Rate Blood Pressure 110/55 Blood Pressure 98/54 [Left] O2 Sat by Pulse 98 Oximetry Lab Results 11/13/18 11/13/18 11/13/18 Range/Units 12:00 12:00 12:30 WBC 4.9 (4.5-11.0) K/mm3 RBC 3.73 (3.65-5.03) M/mm3 Hgb 10.6 L (11.8-15.2) gm/dl Hct 32.6 L (35.5-45.6) % MCV 88 (84-94) fl MCH 28 (28-32) pg MCHC 32 (32-34) % RDW 15.6 H (13.2-15.2) % Plt Count 367 (140-440) K/mm3 Lymph % (Auto) 16.5 (13.4-35.0) % Vance % (Auto) 15.0 H (0.0-7.3) % Eos % (Auto) 0.7 (0.0-4.3) % Baso % (Auto) 0.5 (0.0-1.8) % Lymph # 0.8 L (1.2-5.4) K/mm3 Vance # 0.7 (0.0-0.8) K/mm3 Eos # 0.0 (0.0-0.4) K/mm3 Baso # 0.0 (0.0-0.1) K/mm3 Seg Neutrophils % 67.3 (40.0-70.0) % Seg Neutrophils # 3.3 (1.8-7.7) K/mm3 Sodium 140 (137-145) mmol/L Potassium 3.9 (3.6-5.0) mmol/L Chloride 99.8 (98-107) mmol/L Carbon Dioxide 27 (22-30) mmol/L Anion Gap 17 mmol/L BUN 13 (9-20) mg/dL Creatinine 0.7 L (0.8-1.5) mg/dL Estimated GFR > 60 ml/min BUN/Creatinine Ratio 19 % Glucose 120 H (75-100) mg/dL Calcium 8.7 (8.4-10.2) mg/dL Troponin T < 0.010 (0.00-0.029) ng/mL Urine Color Yellow (Yellow) Urine Turbidity Clear (Clear) Urine pH 5.0 (5.0-7.0) Ur Specific Jeannette 1.009 (1.003-1.030) Urine Protein <15 mg/dl (Negative) mg/dL Urine Glucose (UA) Neg (Negative) mg/dL Urine Ketones Neg (Negative) mg/dL Urine Blood Neg (Negative) Urine Nitrite Neg (Negative) Urine Bilirubin Neg (Negative) Urine Urobilinogen < 2.0 (<2.0) mg/dL Ur Leukocyte Esterase Neg (Negative) Urine WBC (Auto) 1.0 (0.0-6.0) /HPF Urine RBC (Auto) 2.0 (0.0-6.0) /HPF - EKG Data -: EKG Interpreted by Wi EKG shows normal: sinus rhythm Rate: normal - EKG Data 11/13/18 13:02 EKG today shows a sinus rhythm, 90 bpm, normal axis, QTC prolonged, nonspecific T-wave abnormalities, atrial premature complex, flattened P waves in the septal leads, Q waves noted in the inferior leads. This is an abnormal EKG. This EKG is not consistent with ST elevation myocardial infarction. This EKG appears to be unchanged from prior EKG from 07/25/2018. - Radiology Data Radiology results: report reviewed, image reviewed Print Report Referring Physician: SAMIA MAGAÑA Patient Name: MARITA PATEL Date of : 1960 Sex: Male Report Date: 2018-11-13 Report Status: Finalized Findings [facility] [address] [place] [address] XRay Report Signed Patient: MARITA PATEL MR#: [id number] 1 : 1960 Acct:[id number] Age/Sex: 58 / M ADM Date: 11/13/18 Loc: ED Attending Dr: Ordering Physician: SAMIA MAGAÑA MD Date of Service: 11/13/18 Procedure(s): XR chest 1V ap Accession Number(s): [id number] cc: SAMIA MAGAÑA MD Fluoro Time In Minutes: PROCEDURE: XR CHEST 1V AP TECHNIQUE: Chest radiograph single view. HISTORY: Chest Pain COMPARISONS: Chest x-ray September 10, 2018 . FINDINGS: Trachea midline. Heart size top normal. Trachea midline. Aortic contour are stable. Stable chronic elevation left hemidiaphragm. Left basilar airspace disease likely representing chronic atelectasis is stable. No pneumothorax. No sizable effusion. No new airspace disease. IMPRESSION: No significant interval change Elevation left hemidiaphragm with left basilar airspace disease compatible with atelectasis.. This document is electronically signed by Soumya Obando MD., November 13 2018 01:59:39 PM ET Transcribed By: HJ Dictated By: SOUMYA OBANDO MD Electronically Authenticated By: SOUMYA OBANDO MD Signed Date/Time: 11/13/18 1301 rint Report Referring Physician: SAMIA MAGAÑA Patient Name: MARITA PATEL Date of : 1960 Sex: Male Report Date: 2018-11-13 Report Status: Finalized Findings [facility] [address] [place] [address] Cat Scan Report Signed Patient: MARITA PATEL MR#: [id number] 1 : 1960 Acct:[id number] Age/Sex: 58 / M ADM Date: 11/13/18 Loc: ED Attending Dr: Ordering Physician: SAMIA MAGAÑA MD Date of Service: 11/13/18 Procedure(s): CT abdomen pelvis w con Accession Number(s): [id number] cc: SAMIA MAGAÑA MD PROCEDURE: CT ABDOMEN PELVIS W CON TECHNIQUE: Computerized axial tomography of the abdomen and pelvis was performed after the IV injection of iodinated nonionic contrast. HISTORY: left sided thorax pain, hx axillary dvt, cancer fl COMPARISONS: None . FINDINGS: Lower Lung ball: Moderate-sized left pleural effusion visualized. There is an oval nodular density in the left lower lobe laterally measuring 1.5 x 1 cm on image 6 series 2. Additional nodula r density measuring 1.5 cm seen on image 1 series 2. I suspect there are also pa rtially visualized nodules in the right lower lung field. Upper Abdomen: Liver density is heterogeneous. There appear to be multiple scattered lesions in the right and left lobes of the liver measuring up to 2.9 cm. Gallbladder showed no abnormalities. The adrenal glands, the pancreas and spleen are unremarkable. Kidneys, Ureters and Urinary bladder: Small renal cortical cysts visualized up per third right kidney and also in the upper third of the left kidney. The kidneys, ureters and urinary bladder oth erwise are unremarkable. Retroperitoneum: Nonspecific lymph nodes measuring up to a centimeter are seen in the common iliac lymph node chains bilaterally. Nonspecific subcentimeter lymph nodes are seen in the retroperitoneum. No pathologically enlarged lymph nodes are identified. Bowel: Mild sigmoid diverticulosis visualized without evidence of diverticulitis.No evidence of bowel obstruction, ascites or free intraperitoneal gas. The appendix is not clearly visualized. Reproductive organs: Prostate gland does not appear to be significantly enlarged. Other: No acute bone abnormalities are seen. IMPRESSION: Nodular densities are seen in the left lower lobe. I suspect there are also partially visualized nodules in the right lower lobe. The findings suggest metastatic disease. CT of the chest recommended for further evaluation. Liver density is heterogeneous. There appear to be multiple scattered oval lesions in the right and left lobes of the liver measuring up to 2.9 cm suggesting additional metastatic disease. Small renal cortical cysts visualized bilaterally. Mild sigmoid diverticulosis without evidence of diverticulitis. . This document is electronically signed by William Charles MD., November 13 2018 03:50:34 PM ET Transcribed By: DFN Dictated By: WILLIAM CHARLES MD Electronically Authenticated By: WILLIAM CHARLES MD Signed Date/Time: 11/13/18 1452 Critical Care Time: Yes Critical care time in (mins) excluding proc time.: 35 Critical care attestation.: If time is entered above; I have spent that time in minutes in the direct care of this critically ill patient, excluding procedure time. ED Disposition Clinical Impression: Pleural effusion, Squamous cell carcinoma Disposition: - TO HOME OR SELFCARE Is pt being admited?: No Does the pt Need Aspirin: No Condition: Poor Additional Instructions: Continue outpatient medications. Follow up with your bull float finisher within the next 3 days. Do not take metformin medication for the next [address] scan of the abdomen and pelvis and chest demonstrated collection of fluid, pleural effusion on the left hand side. The patient may follow up with interventional radiology, such as Dr. Smith, or pulmonology, such as Dr. Helga madison for this within the next 3-4 days. The patient should also follow up with her bull float finisher within the next 3-5 days. The patient should follow-up with her primary care doctor, oncologist, or hospice team to determine and discuss goals of care and long-term goals of treatment. Specifically, the patient should decide with his family, and primary care team and oncology team and hospice team, if he would like to be full code, or DO NOT RESUSCITATE, DO NOT INTUBATE. Please return to the emergency room right away with new, worsening or different symptoms, or symptoms not present on the initial ER evaluation. Referrals: KLAUS LAL MD [Staff Physician] - 3-5 Days DOMINICK SMITH MD [Staff Physician] - 3-5 Days MILLIE SCHWARTZ MD [Staff Physician] - 3-5 Days ALLEN LLANOS MD [Staff Physician] - 3-5 Days
[2018-11-13 12:25] LABS: BUN/Creatinine Ratio 19; Blood Urea Nitrogen 13 mg/dL (9-20); Calcium 8.7 mg/dL (8.4-10.2); Hemolysis Index 4
[2018-11-13 12:51] LABS: Bilirubin,Urine NEG (Negative); Blood,Urine NEG (Negative); Color,Urine Yellow (Yellow); Protein,Urine <15 mg/dL mg/dL (Negative); Urobilinogen,Urine < 2.0 mg/dL (<2.0)
--- NOTE | 2018-11-13 13:01 | XRay Report ---
PROCEDURE: XR CHEST 1V AP TECHNIQUE: Chest radiograph single view. HISTORY: Chest Pain COMPARISONS: Chest x-ray September 10, 2018 . FINDINGS: Trachea midline. Heart size top normal. Trachea midline. Aortic contour are stable. Stable chronic el evation left hemidiaphragm. Left basilar airspace disease likely representing chronic atelectasis is stable. No pneumothorax. No sizable effusion. No new airspace disease. IMPRESSION: No significant interval change Elevation left hemidiaphragm with left basilar airspace disease compatible with atelectasis.. This document is electronically signed by Regino Patton MD., November 13 2018 01:59:39 PM ET
--- NOTE | 2018-11-13 14:52 | Cat Scan Report ---
PROCEDURE: CT ABDOMEN PELVIS W CON TECHNIQUE: Computerized axial tomography of the abdomen and pelvis was performed after the IV inject ion of iodinated nonionic contrast. HISTORY: left sided thorax pain, hx axillary dvt, cancer fl COMPARISONS: None . FINDINGS: Lower Lung ball: Moderate-sized left pleural effusion visualized. There is an oval nodular density in the left lower lobe laterally measuring 1.5 x 1 cm on image 6 series 2. Additional nodular densit y measuring 1.5 cm seen on image 1 series 2. I suspect there are also partially visualized nodules in the right lower lung field. Upper Abdomen: Liver density is heterogeneous. There appear to be multiple scattered lesions in the right and left lobes of the liver measuring up to 2.9 cm. Gallbladder showed no abnormalities. The ad renal glands, the pancreas and spleen are unremarkable. Kidneys, Ureters and Urinary bladder: Small renal cortical cysts visualized upper third right kidney and also in the upper third of the left kidney. The kidneys, ureters and urinary bladder otherwise a re unremarkable. Retroperitoneum: Nonspecific lymph nodes measuring up to a centimeter are seen in the common iliac ly mph node chains bilaterally. Nonspecific subcentimeter lymph nodes are seen in the retroperitoneum. No pathologically enlarged ly mph nodes are identified. Bowel: Mild sigmoid diverticulosis visualized without evidence of diverticulitis.No evidence of darby l obstruction, ascites or free intraperitoneal gas. The appendix is not clearly visualized. Reproductive organs: Prostate gland does not appear to be significantly enlarged. Other: No acute bone abnormalities are seen. IMPRESSION: Nodular densities are seen in the left lower lobe. I suspect there are also partially visualized nodu les in the right lower lobe. The findings suggest metastatic disease. CT of the chest recommended for further evaluation. Liver density is heterogeneous. There appear to be multiple scattered oval lesions in the right and l eft lobes of the liver measuring up to 2.9 cm suggesting additional metastatic disease. Small renal cortical cysts visualized bilaterally. Mild sigmoid diverticulosis without evidence of diverticulitis. . This document is electronically signed by William Nowak MD., November 13 2018 03:50:34 PM ET
--- NOTE | 2018-11-13 15:46 | Cat Scan Report ---
PROCEDURE: CT ANGIO CHEST TECHNIQUE: CT angiography of the chest performed. IV contrast administered. Axial images and coronal and sagittal reformatted images were obtained. Rotational MIP reformatted images also obtained HISTORY: left sided thorax pain, hx axillary dvt, cancer COMPARISON: 09/10/2018 FINDINGS: There is no aortic dissection seen. There are no abnormal pulmonary arterial filling defects seen to indicate acute pulmonary emboli. Swathi luation limited due to some breathing motion. There is an enlarging mass in the anterior superior mediastinum which surrounds the great vessels. Th is most notably surrounds the left carotid artery and left vertebral artery which appears to arise di rectly from the aortic arch. The left subclavian and right innominate artery are partially encased proximally. This mass now measures about 6.9 x 6.5 x 9.7 cm. There is a moderate left pleural effusion. There is some adjacent atelectasis in left lower lobe. There mildly enlarged lymph nodes now seen in bilateral timothy and subcarinal region. There is abnormal lymphadenopathy in the left axilla which is worsened. Multiple pulmonary nodules seen which are consistent with metastatic disease. Many of these are new. A left lower lobe nodule has increased in size now measuring 1.5 cm as opposed to 9 mm on the prior. Images through the upper abdomen demonstrate multiple new liver lesions which are consistent with met astatic disease. There is unchanged mild adrenal gland thickening. IMPRESSION: There is no aortic dissection or pulmonary embolism seen. PE evaluation mildly limited by breathing m otion. Large superior mediastinal mass has increased in size. It surrounds but does not occlude great vessel s as described above. Worsening pulmonary metastatic disease. New mediastinal and hilar lymphadenopathy. Worsened left axillary lymphadenopathy. New moderate left pleural effusion. New hepatic metastatic disease. This document is electronically signed by Aurea Kearns MD., November 13 2018 04:45:09 PM ET
[2018-11-13 16:01] VITALS: BP 94/73
== END 2018-11-13 16:10 | disposition home or self-care (01) ==
LOC: ED 11:32
DX: J90 Pleural effusion, not elsewhere classified (principal); C44.92 Squamous cell carcinoma of skin, unspecified; I10 Essential (primary) hypertension; E11.9 Type 2 diabetes mellitus without complications; J44.9 Chronic obstructive pulmonary disease, unspecified; Z86.718 Personal history of other venous thrombosis and embolism; Z79.01 Long term (current) use of anticoagulants; Z88.5 Allergy status to narcotic agent
CPT/HCPCS: 36415; 71045; 71275; 74177; 80048; 81001; 84484; 85025; 93005; 93010; 96374; 99285; J3010; J7050; Q9967

== ENCOUNTER 2018-11-29 07:42 | Inpatient (IN) | payer MEDICAID ==
[2018-11-29 08:23] LABS: Basophils % (Auto) 0.5 % (0.0-1.8); Eosinophils % (Auto) 0.4 % (0.0-4.3); Hematocrit 32.5 % (35.5-45.6); Hemoglobin 10.5 gm/dl (11.8-15.2); Lymphocytes # (Auto) 0.8 K/mm3 (1.2-5.4); Lymphocytes % (Auto) 15.1 % (13.4-35.0); Mean Corpuscular HGB Conc 32 % (32-34); Mean Corpuscular Volume 86 fl (84-94); Monocytes # (Auto) 0.7 K/mm3 (0.0-0.8); Monocytes % (Auto) 13.9 % (0.0-7.3); Platelet Count 319 K/mm3 (140-440); Red Blood Count 3.77 M/mm3 (3.65-5.03); Red Cell Distribution Width 16.5 % (13.2-15.2)
[2018-11-29 08:25] LABS: BUN/Creatinine Ratio 18; Blood Urea Nitrogen 11 mg/dL (9-20); Calcium 9.1 mg/dL (8.4-10.2); Hemolysis Index 0
--- NOTE | 2018-11-29 08:28 | XRay Report ---
AP CHEST: HISTORY: chest pain Compared to 11/13/18. The left hemidiaphragm remains elevated with linear scarring or atelectatic changes at the left lung base. Scattered subtle pulmonary nodules are stable. No evidence for pneumonia, large pleural effusion or pneumothorax. Heart size remains within normal limits. Superior mediastinal mass is unchanged. The trachea is slightly deviated to the right but patent. IMPRESSION: No acute change since 11/13/18.
--- NOTE | 2018-11-29 09:35 | Emergency Department Report ---
ED Altered Mental Status HPI - General Chief Complaint: Dyspnea/Respdistress Stated Complaint: BACK PAIN Time Seen by Provider: 11/29/18 09:23 Source: patient Mode of arrival: Ambulatory Limitations: No Limitations - History of Present Illness Initial Comments: Mr. Solitario is a 58-year-old male with history of coronary artery disease, COPD, peripheral arterial disease, tobacco abuse, anxiety, dyslipidemia, mediastinal mass, CHF, diabetes, alcohol abuse, CVA, jugular vein thrombosis who presents with altered mental status and shortness of breath. Upon questioning, patient gives random unintelligible answers which do not correspond to the questioning at hand. I reviewed triage documentation. Shortness of breath was still presenting complaint. Appeared that he was able to speak in short sentences. Also complained of abdominal pain nausea vomiting productive cough. Also complained of chest pain. According to electronic medical record, Mr. 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 Hx of recent stroke. Had previously presented with aphasia. MRI did confirm acute infarct. 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 He was discharged with Eliamaury. Previously had been on Brilinta. MD Complaint: altered mental status, confusion -: This morning, unknown Severity: moderate Consistency of Symptoms: waxing and waning Context: alcohol abuse, change in medication, history of similar presen, cancer, COPD Associated Symptoms: cough, malaise - Related Data Home Medications Medication Instructions Recorded Confirmed Last Taken Albuterol Sulfate [Proventil Hfa] 2 puff IH TID PRN 06/23/18 11/13/18 Unknown Albuterol Sulfate [Albuterol 0.63% 0.63 mg IH TID PRN 07/25/18 11/13/18 Unknown NEBS] AtorvaSTATin [Lipitor] 20 mg PO QHS 11/13/18 11/13/18 11/12/18 Furosemide [Lasix] 20 mg PO QDAY 11/13/18 11/13/18 11/13/18 Potassium Chloride [K-Dur] 10 meq PO QDAY 11/13/18 11/13/18 11/13/18 metFORMIN [Glucophage] 500 mg PO BID 11/13/18 11/13/18 11/12/18 traZODone [Desyrel] 50 mg PO QHS 11/13/18 11/13/18 11/12/18 Previous Rx's Medication Instructions Recorded Last Taken Type Apixaban [Eliquis] 5 mg PO BID 60 Days tablet 07/30/18 11/13/18 Rx Allergies Allergy/AdvReac Type Severity Reaction Status Date / Time dexamethasone [From Decadron] Allergy Itching Verified 07/25/18 01:44 ED Review of Systems ROS: Stated complaint: BACK PAIN Other details as noted in HPI Comment: Unobtainable due to pts medical conditions (altered mental status) ED Past Medical Hx - Past Medical History Previous Medical History?: Yes Hx Hypertension: Yes Hx CVA: Yes Hx Heart Attack/AMI: Yes (x 2) Hx Congestive Heart Failure: No Hx Diabetes: Yes Hx Deep Vein Thrombosis: No Hx Pulmonary Embolism: No Hx Liver Disease: No Hx of Cancer: Yes Hx Asthma: No Hx COPD: Yes Hx Tuberculosis: No Additional medical history: cardiomyopathy. PVD, PAD. coronary artery disease. axillary DVT - Surgical History Past Surgical History?: Yes Hx Coronary Stent: No Hx Pacemaker: No Hx Internal Defibrillator: No Additional Surgical History: stent in left leg; and stent in rt leg - Social History Smoking Status: Unknown if ever smoked - Medications Home Medications: Home Medications Medication Instructions Recorded Confirmed Last Taken Type Albuterol Sulfate [Proventil Hfa] 2 puff IH TID PRN 06/23/18 11/13/18 Unknown History Albuterol Sulfate [Albuterol 0.63% 0.63 mg IH TID PRN 07/25/18 11/13/18 Unknown History NEBS] Apixaban [Eliquis] 5 mg PO BID 60 Days tablet 07/30/18 11/13/18 11/13/18 Rx AtorvaSTATin [Lipitor] 20 mg PO QHS 11/13/18 11/13/18 11/12/18 History Furosemide [Lasix] 20 mg PO QDAY 11/13/18 11/13/18 11/13/18 History Potassium Chloride [K-Dur] 10 meq PO QDAY 11/13/18 11/13/18 11/13/18 History metFORMIN [Glucophage] 500 mg PO BID 11/13/18 11/13/18 11/12/18 History traZODone [Desyrel] 50 mg PO QHS 11/13/18 11/13/18 11/12/18 History ED Physical Exam - General Limitations: No Limitations General appearance: alert, in no apparent distress, other (arousable but confused random speech) - Head Head exam: Present: atraumatic, normocephalic - Eye Eye exam: Present: normal appearance. Absent: scleral icterus, conjunctival injection - ENT ENT exam: Present: mucous membranes dry - Neck Neck exam: Present: normal inspection. Absent: tenderness, meningismus - Respiratory Respiratory exam: Present: normal lung sounds bilaterally. Absent: respiratory distress, wheezes, rales, rhonchi - Cardiovascular Cardiovascular Exam: Present: regular rate, normal rhythm, normal heart sounds. Absent: systolic murmur, diastolic murmur, rubs, gallop - GI/Abdominal GI/Abdominal exam: Present: soft, normal bowel sounds. Absent: distended, tenderness, guarding, rebound - Rectal Rectal exam: Present: deferred - Extremities Exam Extremities exam: Present: normal inspection - Neurological Exam Neurological exam: Present: alert - Expanded Neurological Exam Expanded Neurological exam: Present: other (confused speech) Speech: Present: expressive aphasia Cranial nerves: EOM's Intact: Normal, Gag Reflex: Normal, Tongue Deviation: Normal Cerebellar function: Finger to Nose: Normal Upper motor neuron: Mayur Neglect: Normal, Pronator Drift: Normal Sensory exam: Upper Extremity Light Touch: Normal Motor strength exam: RUE: 5, LUE: 5, RLE: 5, LLE: 5 Best Eye Response ([place]): (4) open spontaneously Best Motor Response ([place]): (6) obeys commands Best Verbal Response ([place]): (4) confused conversation [place] Total: 14 - Psychiatric Psychiatric exam: Present: normal affect, normal mood - Skin Skin exam: Present: warm, dry, intact, normal color. Absent: rash ED Course Vital Signs 11/29/18 11/29/18 11/29/18 07:48 07:58 08:00 Temperature 98.3 F Pulse Rate 104 H Respiratory 22 Rate Blood Pressure Blood Pressure 124/81 [Right] O2 Sat by Pulse 98 93 92 Oximetry 11/29/18 11/29/18 11/29/18 08:16 08:30 08:46 Temperature Pulse Rate Respiratory Rate Blood Pressure Blood Pressure [Right] O2 Sat by Pulse 96 94 91 Oximetry 11/29/18 11/29/18 11/29/18 09:00 09:16 09:25 Temperature Pulse Rate 98 H 99 H Respiratory 18 19 26 H Rate Blood Pressure 114/63 114/63 Blood Pressure [Right] O2 Sat by Pulse 93 90 Oximetry 11/29/18 09:30 Temperature Pulse Rate 105 H Respiratory 24 Rate Blood Pressure 114/63 Blood Pressure [Right] O2 Sat by Pulse 98 Oximetry - Lab Data Result diagrams: 11/29/18 07:55 11/29/18 07:55 Lab Results 11/29/18 11/29/18 11/29/18 Range/Units 07:55 07:55 09:43 WBC 5.0 (4.5-11.0) K/mm3 RBC 3.77 (3.65-5.03) M/mm3 Hgb 10.5 L (11.8-15.2) gm/dl Hct 32.5 L (35.5-45.6) % MCV 86 (84-94) fl MCH 28 (28-32) pg MCHC 32 (32-34) % RDW 16.5 H (13.2-15.2) % Plt Count 319 (140-440) K/mm3 Lymph % (Auto) 15.1 (13.4-35.0) % Andrews % (Auto) 13.9 H (0.0-7.3) % Eos % (Auto) 0.4 (0.0-4.3) % Baso % (Auto) 0.5 (0.0-1.8) % Lymph # 0.8 L (1.2-5.4) K/mm3 Andrews # 0.7 (0.0-0.8) K/mm3 Eos # 0.0 (0.0-0.4) K/mm3 Baso # 0.0 (0.0-0.1) K/mm3 Seg Neutrophils % 70.1 H (40.0-70.0) % Seg Neutrophils # 3.5 (1.8-7.7) K/mm3 POC ABG pH 7.434 (7.35-7.45) POC ABG pCO2 41.2 (35-45) POC ABG pO2 58 L (80-105) POC ABG HCO3 27.6 (22-26 mml/L) POC ABG Total CO2 29 (23-27mmol/L) POC ABG O2 Sat 91 POC ABG Base Excess 3 ((-2) - (+3)mmol/L) FiO2 28 % Sodium 137 (137-145) mmol/L Potassium 3.8 (3.6-5.0) mmol/L Chloride 96.9 L (98-107) mmol/L Carbon Dioxide 28 (22-30) mmol/L Anion Gap 16 mmol/L BUN 11 (9-20) mg/dL Creatinine 0.6 L (0.8-1.5) mg/dL Estimated GFR > 60 ml/min BUN/Creatinine Ratio 18 % Glucose 114 H (75-100) mg/dL Lactic Acid (0.7-2.0) mmol/L Calcium 9.1 (8.4-10.2) mg/dL Troponin T < 0.010 (0.00-0.029) ng/mL Urine Color (Yellow) Urine Turbidity (Clear) Urine pH (5.0-7.0) Ur Specific [place] (1.003-1.030) Urine Protein (Negative) mg/dL Urine Glucose (UA) (Negative) mg/dL Urine Ketones (Negative) mg/dL Urine Blood (Negative) Urine Nitrite (Negative) Urine Bilirubin (Negative) Urine Urobilinogen (<2.0) mg/dL Ur Leukocyte Esterase (Negative) Urine WBC (Auto) (0.0-6.0) /HPF Urine RBC (Auto) (0.0-6.0) /HPF Urine Opiates Screen Urine Methadone Screen Ur Barbiturates Screen Ur Phencyclidine Scrn Ur Amphetamines Screen U Benzodiazepines Scrn Urine Cocaine Screen U Marijuana (THC) Screen Drugs of Abuse Note Plasma/Serum Alcohol (0-0.07) % 11/29/18 11/29/18 11/29/18 Range/Units 09:55 09:55 10:26 WBC (4.5-11.0) K/mm3 RBC (3.65-5.03) M/mm3 Hgb (11.8-15.2) gm/dl Hct (35.5-45.6) % MCV (84-94) fl MCH (28-32) pg MCHC (32-34) % RDW (13.2-15.2) % Plt Count (140-440) K/mm3 Lymph % (Auto) (13.4-35.0) % Andrews % (Auto) (0.0-7.3) % Eos % (Auto) (0.0-4.3) % Baso % (Auto) (0.0-1.8) % Lymph # (1.2-5.4) K/mm3 Andrews # (0.0-0.8) K/mm3 Eos # (0.0-0.4) K/mm3 Baso # (0.0-0.1) K/mm3 Seg Neutrophils % (40.0-70.0) % Seg Neutrophils # (1.8-7.7) K/mm3 POC ABG pH (7.35-7.45) POC ABG pCO2 (35-45) POC ABG pO2 (80-105) POC ABG HCO3 (22-26 mml/L) POC ABG Total CO2 (23-27mmol/L) POC ABG O2 Sat POC ABG Base Excess ((-2) - (+3)mmol/L) FiO2 % Sodium (137-145) mmol/L Potassium (3.6-5.0) mmol/L Chloride (98-107) mmol/L Carbon Dioxide (22-30) mmol/L Anion Gap mmol/L BUN (9-20) mg/dL Creatinine (0.8-1.5) mg/dL Estimated GFR ml/min BUN/Creatinine Ratio % Glucose (75-100) mg/dL Lactic Acid (0.7-2.0) mmol/L Calcium (8.4-10.2) mg/dL Troponin T < 0.010 (0.00-0.029) ng/mL Urine Color Yellow (Yellow) Urine Turbidity Clear (Clear) Urine pH 7.0 (5.0-7.0) Ur Specific [place] 1.009 (1.003-1.030) Urine Protein <15 mg/dl (Negative) mg/dL Urine Glucose (UA) Neg (Negative) mg/dL Urine Ketones Neg (Negative) mg/dL Urine Blood Neg (Negative) Urine Nitrite Neg (Negative) Urine Bilirubin Neg (Negative) Urine Urobilinogen 2.0 (<2.0) mg/dL Ur Leukocyte Esterase Neg (Negative) Urine WBC (Auto) < 1.0 (0.0-6.0) /HPF Urine RBC (Auto) < 1.0 (0.0-6.0) /HPF Urine Opiates Screen Presumptive negative Urine Methadone Screen Presumptive negative Ur Barbiturates Screen Presumptive negative Ur Phencyclidine Scrn Presumptive negative Ur Amphetamines Screen Presumptive negative U Benzodiazepines Scrn Presumptive negative Urine Cocaine Screen Presumptive negative U Marijuana (THC) Screen Presumptive positive Drugs of Abuse Note Disclamer Plasma/Serum Alcohol (0-0.07) % 11/29/18 11/29/18 Range/Units 10:26 10:26 WBC (4.5-11.0) K/mm3 RBC (3.65-5.03) M/mm3 Hgb (11.8-15.2) gm/dl Hct (35.5-45.6) % MCV (84-94) fl MCH (28-32) pg MCHC (32-34) % RDW (13.2-15.2) % Plt Count (140-440) K/mm3 Lymph % (Auto) (13.4-35.0) % Andrews % (Auto) (0.0-7.3) % Eos % (Auto) (0.0-4.3) % Baso % (Auto) (0.0-1.8) % Lymph # (1.2-5.4) K/mm3 Andrews # (0.0-0.8) K/mm3 Eos # (0.0-0.4) K/mm3 Baso # (0.0-0.1) K/mm3 Seg Neutrophils % (40.0-70.0) % Seg Neutrophils # (1.8-7.7) K/mm3 POC ABG pH (7.35-7.45) POC ABG pCO2 (35-45) POC ABG pO2 (80-105) POC ABG HCO3 (22-26 mml/L) POC ABG Total CO2 (23-27mmol/L) POC ABG O2 Sat POC ABG Base Excess ((-2) - (+3)mmol/L) FiO2 % Sodium (137-145) mmol/L Potassium (3.6-5.0) mmol/L Chloride (98-107) mmol/L Carbon Dioxide (22-30) mmol/L Anion Gap mmol/L BUN (9-20) mg/dL Creatinine (0.8-1.5) mg/dL Estimated GFR ml/min BUN/Creatinine Ratio % Glucose (75-100) mg/dL Lactic Acid 2.00 (0.7-2.0) mmol/L Calcium (8.4-10.2) mg/dL Troponin T (0.00-0.029) ng/mL Urine Color (Yellow) Urine Turbidity (Clear) Urine pH (5.0-7.0) Ur Specific [place] (1.003-1.030) Urine Protein (Negative) mg/dL Urine Glucose (UA) (Negative) mg/dL Urine Ketones (Negative) mg/dL Urine Blood (Negative) Urine Nitrite (Negative) Urine Bilirubin (Negative) Urine Urobilinogen (<2.0) mg/dL Ur Leukocyte Esterase (Negative) Urine WBC (Auto) (0.0-6.0) /HPF Urine RBC (Auto) (0.0-6.0) /HPF Urine Opiates Screen Urine Methadone Screen Ur Barbiturates Screen Ur Phencyclidine Scrn Ur Amphetamines Screen U Benzodiazepines Scrn Urine Cocaine Screen U Marijuana (THC) Screen Drugs of Abuse Note Plasma/Serum Alcohol < 0.01 (0-0.07) % 11/29/18 09:35 EKG obtained 0749 Sinus tachycardia rate 115 beats a minute normal axis and prolonged QT interval and nonspecific T wave pattern no significant ST elevation positive PVC - Medical Decision Making Mr. Solitario presents with altered mental status differential diagnosis includes alcohol withdrawal syndrome, intracranial mass, CVA, polypharmacy I suspect acute metabolic encephalopathy due to metastatic process. Radiologist called me for physical findings. Mediastinal mass has greatly enlarged in size with compression of the superior vena cava which explains the swelling of the right chest. Unfortunately Mr. Solitario's malignancy neoplastic process has progressed. Will need hospice care and palliative oncology planned. Critical care attestation.: If time is entered above; I have spent that time in minutes in the direct care o f this critically ill patient, excluding procedure time. ED Disposition Clinical Impression: Acute metabolic encephalopathy, Metastatic cancer Disposition: OP ADMIT IP TO THIS HOSP Is pt being admited?: Yes Does the pt Need Aspirin: No Condition: Stable
[2018-11-29 10:17] LABS: Bilirubin,Urine NEG (Negative); Blood,Urine NEG (Negative); Color,Urine Yellow (Yellow); Protein,Urine <15 mg/dL mg/dL (Negative); RBC,Urine < 1.0 /HPF (0.0-6.0)
[2018-11-29 10:20] LABS: WBC,Urine < 1.0 /HPF (0.0-6.0)
[2018-11-29 10:33] LABS: Amphetamine Screen,Urine PRESUMPTIVE NEGATIVE; Benzodiazepines Screen,Urine PRESUMPTIVE NEGATIVE; Cocaine Screen,Urine PRESUMPTIVE NEGATIVE; Methadone Screen,Urine PRESUMPTIVE NEGATIVE; Opiate Screen,Urine PRESUMPTIVE NEGATIVE
[2018-11-29 10:45] LABS: Cannabinoid Screen,Urine PRESUMPTIVE POSITIVE
--- NOTE | 2018-11-29 11:14 | Cat Scan Report ---
PROCEDURE: CT HEAD/BRAIN WO CON TECHNIQUE: Computerized tomography of the head was performed without contrast material. CT DOSE LENGTH PRODUCT: 1353.6 mGy-cm. HISTORY: Altered mental status COMPARISONS: CT head June 23, 2018. FINDINGS: There is no evidence for acute ischemia. There is no hemorrhage. There is no midline shift. There is no hydrocephalus. There is no mass. Age appropriate dubon-white matter attenuation is noted. There is no calvarial fracture. The temporal bones demonstrate aerated mastoid air cells. The middle ears appear unremarkable. Paranasal sinuses are unremarkable. Bilateral proptosis. Similar to prior. IMPRESSION: * No acute intracranial findings. * Bilateral proptosis. Similar to prior. This document is electronically signed by Alan Amanda MD., November 29 2018 11:12:28 AM ET
[2018-11-29] MEDS ORDERED: ATIVAN ONE (11:23)
[2018-11-29] MEDS ORDERED: ATIVAN IV ONE (11:25)
--- NOTE | 2018-11-29 11:27 | Cat Scan Report ---
PROCEDURE: CT ANGIO CHEST TECHNIQUE: Computerized tomographic angiography of the chest was performed after the IV injection of iodinated nonionic contrast including image processing. The image data was postprocessed using 2-dim ensional multiplanar reformatted (MPR) and 3-dimensional (MIP and/or volume rendered) techniques. Aut omated exposure control, adjustment of mA and/or kV according to patient size, or iterative reconstru ction dose optimization techniques were utilized. Coronal and sagittal reconstructed imaging provided . CT DOSE LENGTH PRODUCT: 4493.3 mGy-cm. HISTORY: cough hx of mass COMPARISONS: CT chest November 13, 2018. FINDINGS: Chest: Small to moderate left pleural effusion with adjacent area of subsegmental atelectasis. Several bilat eral pulmonary nodules identified. One of the larger nodules on the right measures 1.8 cm and one of the larger nodules on the left measures 1.4 cm. No pneumothorax. Prominent central pulmonary markings extends to the periphery of both lungs. No right effusion. No distinct endobronchial lesions. Large mass in the superior mediastinum is heterogeneous measuring 8 x 6 x 7 cm and encases the major branch arteries off the aorta. Right brachiocephalic artery appears mildly narrow. Significant narrow ing of the left carotid artery and left vertebral artery identified. Vessels are still patent with co ntrast. Mild narrowing of the left subclavian artery. Subclavian artery is patent with contrast. No a rterial invasion. There is probable compression of the left upper thoracic venous system. No thoracic aortic aneurysm or dissection. Main pulmonary arteries unremarkable. No pulmonary embolus. Moderate cardiomegaly. No pericardial effusion. Coronary artery disease. Moderate to severe swelling of the left anterior thoracic soft tissues and muscles. Overlying skin th ickening noted. No distinct localized fluid collection is not identified. . Less notable mild swellin g of the right hemithorax anterior soft tissues Enlarged left axillary lymph nodes noted. One of the larger lymph nodes measures 1.8 x 2.1 cm. No dis tinct masses clearly evident. Right axillary regions unremarkable. Bilateral hilar and mediastinal adenopathy identified. One of the larger lymph nodes in the right per itracheal region measures 1.7 x 3.1 cm. Images of the esophagus are unremarkable. Several ill-defined low-density lesions in the liver not well evaluated Nonspecific nodular hyperplasia of both adrenal glands identified. Bones: No suspicious osseous lesions on this limited examination of the skeleton. Metastatic disease better evaluated with bone scan. Degenerative changes are present in the spine. IMPRESSION: * No pulmonary embolus. No aortic aneurysm. No dissection. * Cardiomegaly. * Larger mediastinal mass as well as mediastinal and bilateral hilar adenopathy. Suspect malignancy. Mass encases the major branch arteries off the aorta and causes narrowing. Increased swelling in the left upper hemithorax suggests possible venous occlusion or compression. Overall worse compared to p rior. * Metastatic disease to the lungs. Suspect metastatic disease to liver. * Small to moderate left pleural effusion. * Nonspecific nodular hyperplasia of both adrenal glands. * 11/29/2018 at 0823 PT: I, Aaln Amanda MD, discussed the findings over the phone with Dr. Lerma. This document is electronically signed by Alan Amanda MD., November 29 2018 11:25:06 AM ET
--- NOTE | 2018-11-29 11:34 | Cat Scan Report ---
PROCEDURE: CT ABDOMEN PELVIS W CON TECHNIQUE: Computerized axial tomography of the abdomen and pelvis was performed after the IV injecti on of iodinated nonionic contrast. Coronal and sagittal reconstructed imaging provided. HISTORY: abdominal pain hx of thymus cancer COMPARISONS: CT abdomen pelvis November 13, 2018. FINDINGS: Abdomen: Lung findings discussed on the CT chest. Liver: Numerous ill-defined low-density lesions in the liver. One of the larger lesions in the right liver on image 50 appears larger compared to prior and now measures 3.4 cm and previously measured 2. 7 cm. Adrenals: Indeterminate nodular hyperplasia of both adrenal glands is stable compared to the prior. Kidneys: Symmetrical cortical enhancement. Bilateral renal cysts are unchanged. No hydronephrosis. Gallbladder, stomach, spleen, and pancreas are unremarkable. No aneurysm. No dissection. [id number] atherosclerotic disease. IVC is unremarkable. There is no periaortic or retroperitoneal significant adenopathy or mass. Stable nonspecific subcenti meter retroperitoneal lymph nodes. [id number] stool. Sigmoid diverticulosis. No wall thickening or inflammatory changes. Terminal ileum is unremarkable. Appendix is normal. Small bowel loops are unremarkable. No obstructive pattern. No air-fluid levels. No free air. No free fluid. Mesentery is unremarkable. Pelvis: Prominent heterogeneous prostate with calcification. Bladder: Unremarkable. There is no pelvic mass or adenopathy. Inguinal regions are unremarkable. Bones: No suspicious osseous lesions on this limited examination of the skeleton. Metastatic disease better evaluated with bone scan. Degenerative changes are in the spine. Bilateral sacroiliitis with ankylosis. IMPRESSION: * Metastatic disease to the liver. Worse compared to prior. * Indeterminate nodular hyperplasia both adrenal glands. * Stable bilateral renal cysts. This document is electronically signed by Alan Amanda MD., November 29 2018 11:32:16 AM ET
[2018-11-29] MEDS ORDERED: MAXIPIME/NS 2 GM/100 ML 2 GM/100 ML BAG IV ONE (12:01)
[2018-11-29 13:46] VITALS: BP 137/87
== END 2018-11-29 13:47 | disposition hospice, home (50) | DRG 71 ==
LOC: ED 07:42 → 4A 11:49
PROVIDERS: ADMIT Internal Medicine; ATTEND Internal Medicine
PROC: 4A033R1 Measurement of Arterial Saturation, Peripheral, Percutaneous Approach (ICD-10-PCS; principal; 2018-11-29)
DX: G93.41 Metabolic encephalopathy (principal); C79.9 Secondary malignant neoplasm of unspecified site; N13.30 Unspecified hydronephrosis; I42.9 Cardiomyopathy, unspecified; C37 Malignant neoplasm of thymus; N39.0 Urinary tract infection, site not specified; I25.10 Atherosclerotic heart disease of native coronary artery without angina pectoris; J44.9 Chronic obstructive pulmonary disease, unspecified; F41.9 Anxiety disorder, unspecified; E78.5 Hyperlipidemia, unspecified; E11.9 Type 2 diabetes mellitus without complications; F10.10 Alcohol abuse, uncomplicated; Y90.9 Presence of alcohol in blood, level not specified; Z51.5 Encounter for palliative care; Z86.73 Personal history of transient ischemic attack (TIA), and cerebral infarction without residual deficits; Z79.51 Long term (current) use of inhaled steroids; Z79.84 Long term (current) use of oral hypoglycemic drugs; I25.2 Old myocardial infarction; Z86.718 Personal history of other venous thrombosis and embolism; Z95.820 Peripheral vascular angioplasty status with implants and grafts
CPT/HCPCS: 36415; 70450; 71045; 71275; 74177; 80048; 80307; 80320; 81001; 82140; 82803; 84484; 85025; 87040; 93005; 93010; 96374; G0378; G0480; J2060; Q9967

== ENCOUNTER 2018-12-19 04:03 | Emergency (ER) | payer MEDICAID ==
--- NOTE | 2018-12-19 04:59 | XRay Report ---
CHEST 1 VIEW INDICATION: Chest Pain. COMPARISON: 11/29/2018. FINDINGS: Support devices: None. Heart: Normal. Lungs/Pleura: No acute pulmonary or pleural findings. There is persistent elevation of the left hemidiaphragm. IMPRESSION: 1. No acute findings. Signer Name: Chaz Hunt MD Signed: 12/19/2018 4:55 AM Workstation Name: [id number]
[2018-12-19 05:06] LABS: Basophils % (Auto) 0.2 % (0.0-1.8); Eosinophils % (Auto) 0.3 % (0.0-4.3); Hematocrit 30.5 % (35.5-45.6); Hemoglobin 9.9 gm/dl (11.8-15.2); INR 1.15 (0.87-1.13); Lymphocytes # (Auto) 0.7 K/mm3 (1.2-5.4); Lymphocytes % (Auto) 13.1 % (13.4-35.0); Mean Corpuscular HGB Conc 33 % (32-34); Mean Corpuscular Volume 85 fl (84-94); Monocytes # (Auto) 0.7 K/mm3 (0.0-0.8); Monocytes % (Auto) 13.2 % (0.0-7.3); Partial Thromboplastin Time 23.8 Sec. (24.2-36.6); Platelet Count 316 K/mm3 (140-440); Red Cell Distribution Width 17.9 % (13.2-15.2)
[2018-12-19 05:11] LABS: Alanine Aminotransferase 25 units/L (7-56); Albumin 3.3 g/dL (3.9-5); BUN/Creatinine Ratio 21; Blood Urea Nitrogen 19 mg/dL (9-20); Calcium 9.4 mg/dL (8.4-10.2); Hemolysis Index 4
[2018-12-19] MEDS ORDERED: NACL 0.9% 1000 ML 1,000 ML ONE (06:01)
[2018-12-19] MEDS ORDERED: NACL 0.9% 1000 ML 1,000 ML IV ONE (06:04)
--- NOTE | 2018-12-19 06:16 | Emergency Department Report ---
ED Chest Pain HPI - General Chief Complaint: Chest Pain Stated Complaint: CHEST PAIN Time Seen by Provider: 12/19/18 05:55 Source: EMS Mode of arrival: Stretcher Limitations: No Limitations - History of Present Illness Initial Comments: 58-year-old -[place] male presents to the emergency department with the complaint of acute midsternal to left-sided chest pain and shortness of breath started about 3 AM. Patient took a full dose aspirin and a sublingual nitroglycerin before EMS arrival without much relief. He also complains of some pain into the back. He has a history of COPD, CVA, diabetes, coronary artery disease with NJ 2 and cardiac stent, cardiomyopathy, peripheral vascular and arterial disease, previous axillary DVT. The patient was also recently here for what appears to be some acute encephalopathy and records show that the patient has some type of mediastinal mass. 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 Previous imaging showed enlargement of this mass that was pressing on the superior vena cava. The patient, at the time of his last visit last month, was under hospice care. The patient is able to answer some questions appropriately but is a poor historian. Severity scale (0 -10): 9 - Related Data Home Medications Medication Instructions Recorded Confirmed Last Taken AtorvaSTATin [Lipitor] 20 mg PO QHS 11/13/18 11/29/18 11/12/18 metFORMIN [Glucophage] 500 mg PO BID 11/13/18 11/29/18 11/12/18 Apixaban [Eliquis] 5 mg PO QDAY 11/29/18 11/29/18 Unknown Famotidine [Pepcid] 20 mg PO BID 11/29/18 11/29/18 Unknown Fluticasone/Salmeterol [Advair 1 puff IH BID 11/29/18 11/29/18 Unknown Diskus 250-50 mcg] HYDROcodone/APAP 10-325 [[place] 1 each PO Q6HR PRN 11/29/18 11/29/18 Unknown 10/325] Ipratropium/Albuterol Sulfate 1 neb IH Q6H 11/29/18 11/29/18 Unknown [DUONEB *Not for PRN Use*] Oxycodone HCl [oxyCODONE] 10 mg PO Q6H PRN 11/29/18 11/29/18 Unknown Allergies Allergy/AdvReac Type Severity Reaction Status Date / Time dexamethasone [From Decadron] Allergy Itching Verified 07/25/18 01:44 Heart Score - HEART Score History: Moderately suspicious EKG: Non-specific Age: 45-65 Risk factors: > 3 risk factors or hx of atherosclerotic disease Troponin: < normal limit HEART Score: 5 - Critical Actions Critical Actions: 4-6 pts:12-16.6% risk of adverse cardiac event. Should be admitted ED Review of Systems ROS: Stated complaint: CHEST PAIN Other details as noted in HPI Comment: All other systems reviewed and negative Constitutional: denies: chills, fever Eyes: denies: eye pain, vision change ENT: denies: ear pain, throat pain Respiratory: shortness of breath. denies: orthopnea Cardiovascular: chest pain. denies: edema Gastrointestinal: denies: abdominal pain, vomiting Genitourinary: denies: dysuria, discharge Musculoskeletal: back pain. denies: arthralgia Skin: denies: rash, lesions Neurological: denies: headache, weakness ED Past Medical Hx - Past Medical History Hx Hypertension: Yes Hx CVA: Yes Hx Heart Attack/AMI: Yes (x 2) Hx Congestive Heart Failure: No Hx Diabetes: Yes Hx Deep Vein Thrombosis: No Hx Pulmonary Embolism: No Hx Liver Disease: No Hx Asthma: No Hx COPD: Yes Hx Tuberculosis: No Additional medical history: cardiomyopathy. PVD, PAD. coronary artery disease. axillary DVT - Surgical History Hx Coronary Stent: No Hx Pacemaker: No Hx Internal Defibrillator: No Additional Surgical History: stent in left leg; and stent in rt leg - Social History Smoking Status: Former Smoker - Medications Home Medications: Home Medications Medication Instructions Recorded Confirmed Last Taken Type AtorvaSTATin [Lipitor] 20 mg PO QHS 11/13/18 11/29/18 11/12/18 History metFORMIN [Glucophage] 500 mg PO BID 11/13/18 11/29/18 11/12/18 History Apixaban [Eliquis] 5 mg PO QDAY 11/29/18 11/29/18 Unknown History Famotidine [Pepcid] 20 mg PO BID 11/29/18 11/29/18 Unknown History Fluticasone/Salmeterol [Advair 1 puff IH BID 11/29/18 11/29/18 Unknown History Diskus 250-50 mcg] HYDROcodone/APAP 10-325 [[place] 1 each PO Q6HR PRN 11/29/18 11/29/18 Unknown History 10/325] Ipratropium/Albuterol Sulfate 1 neb IH Q6H 11/29/18 11/29/18 Unknown History [DUONEB *Not for PRN Use*] Oxycodone HCl [oxyCODONE] 10 mg PO Q6H PRN 11/29/18 11/29/18 Unknown History ED Physical Exam - General Limitations: No Limitations General appearance: in no apparent distress - Head Head exam: Present: atraumatic, normocephalic - Eye Eye exam: Present: PERRL, EOMI - ENT ENT exam: Present: normal orophraynx - Neck Neck exam: Present: full ROM - Respiratory Respiratory exam: Present: rales (to the left side). Absent: respiratory distress, accessory muscle use - Cardiovascular Cardiovascular Exam: Present: regular rate, normal rhythm, normal heart sounds - GI/Abdominal GI/Abdominal exam: Present: soft. Absent: distended, tenderness, guarding - Extremities Exam Extremities exam: Present: full ROM, normal capillary refill. Absent: tenderness - Neurological Exam Neurological exam: Present: alert, CN II-XII intact, other (cooperative, follows commands) - Skin Skin exam: Present: warm, dry, intact ED Course Vital Signs 12/19/18 12/19/18 12/19/18 04:35 04:41 06:03 Temperature 97.3 F L Pulse Rate 95 H 89 Respiratory 21 15 Rate Blood Pressure 95/68 108/58 [Left] O2 Sat by Pulse 100 100 Oximetry 12/19/18 12/19/18 08:01 10:05 Temperature 97.9 F Pulse Rate 112 H 102 H Respiratory 15 24 Rate Blood Pressure 115/69 112/72 [Left] O2 Sat by Pulse 99 96 Oximetry - Consultations Consultation #1: I spoke with the patient's hospice nurse, Alla, at [facility]. She confirms that the patient is still under hospice care and has medications for pain and anxiety at home. She has recommended discharge to home and they will follow up regarding any further needs for his hospice care. I spoke with the patient's son was in agreement with the plan for discharge home to continue hospice care. 12/19/18 12:30 ENOCH score - Enoch Score Age > 65: (0) No Aspirin use within the Past 7 Days: (1) Yes 3 or more CAD Risk Factors: (1) Yes 2 or more Angina events in past 24 hrs: (1) Yes Known CAD with more than 50% Stenosis: (0) No Elevated Cardiac Markers: (0) No ST Deviation Greater than 0.5mm: (0) No ENOCH Score: 3 ED Medical Decision Making - Lab Data Result diagrams: 12/19/18 04:34 12/19/18 04:34 - EKG Data -: EKG Interpreted by Me EKG shows normal: sinus rhythm, axis, intervals (prolonged QTc interval), QRS complexes (Q waves to the inferior leads), ST-T waves (nonspecific T waves) Rate: tachycardia ( 106 bpm) - EKG Data When compared to previous EKG there are: no significant change Interpretation: unchanged when compared t (11/29/18) - Radiology Data Radiology results: report reviewed CHEST 1 VIEW INDICATION: Chest Pain. COMPARISON: 11/29/2018. FINDINGS: Support devices: None. Heart: Normal. Lungs/Pleura: No acute pulmonary or pleural findings. There is persistent elevation of the left hemidiaphragm. IMPRESSION: 1. No acute findings. CT angio chest INDICATION / CLINICAL INFORMATION: CP, elevated diner. TECHNIQUE: Precontrast bolus timing images were obtained followed by postcontrast axial and reformatted images. 3-plane MIP reconstructions were performed at an independent workstation by the technologist. All CT scans at this location are performed using CT dose reduction for ALARA by means of automated exposure control. COMPARISON: 11/13/2018 FINDINGS: Pulmonary arterial enhancement is normal bilaterally. No evidence of pulmonary embolus. Again noted is a large anterior mediastinal mass causing right lateral disp lacement of the trachea and encasing the great vessels. Also there is mediastinal and left axillary adenopathy. Subcutaneous edema is seen in the left lateral chest wall suggesting either occlusion or significant compression of the axillary/subclavian vein. Multiple pulmonary nodules are identified. A moderate size left pleural effusion is present. No destructive skeletal changes. Limited upper abdominal images show multiple hepatic lesions. IMPRESSION: 1. No evidence of acute pulmonary embolism. 2. No interval change in large mediastinal mass, mediastinal and left axillary adenopathy or evidence of pulmonary and hepatic metastasis. 3. Edematous changes in the left anterior chest wall suggesting venous occlusion or compression. 4. Stable left pleural effusion. - Medical Decision Making This patient came in with complaint of some chest pain and shortness of breath starting earlier this morning. EKG did not show any signs of ST elevation NJ. Chest x-ray did not show any acute process. Patient's labs were mostly unremarkable including negative troponins 2 but he did have a elevated d-dimer. CT angiography of the chest did not show any signs of pulmonary embolism and shows his large mediastinal mass without any interval change, as well as a stable left pleural effusion. He was given a few doses of pain medication with some improvement. The patient is currently on hospice care secondary to his squamous cell carcinoma with metastasis and large mediastinal mass. The hospice nurse was contacted and has suggested discharge to home where they will follow- up today. I spoke with the patient's son who was in agreement with this plan. I spoke to the patient himself regarding his lab findings and the plan for discharge home for hospice care and he understands and agrees. His vital signs have been stable throughout his ED course. - Differential Diagnosis NJ, PE, malignancy, pneumonia Critical Care Time: No Critical care attestation.: If time is entered above; I have spent that time in minutes in the direct care of this critically ill patient, excluding procedure time. ED Disposition Clinical Impression: Hospice care patient, Metastatic cancer, Mediastinal mass, Pleural effusion, Chest pain Disposition: DC-01 TO HOME OR SELFCARE Is pt being admited?: No Condition: Stable Instructions: Chest Pain (ED), Pleural Effusion (ED) Additional Instructions: Your hospice company has been contacted and they are aware of your visit here and your discharge to home. They should be in contact with you shortly for further evaluation and management of your symptoms. Take your pain and anxiety medications as previously prescribed. Return to the emergency department with any concerns or acute distress. Referrals: PRIMARY CARE, [Primary Care Provider] - [facility] Time of Disposition: 09:47
[2018-12-19] MEDS ORDERED: MORPHINE IV ONE ×2 (07:50→09:17)
--- NOTE | 2018-12-19 08:41 | Cat Scan Report ---
CT angio chest INDICATION / CLINICAL INFORMATION: CP, elevated diner. TECHNIQUE: Precontrast bolus timing images were obtained followed by postcontrast axial and reformatted images. 3-plane MIP reconstructions were performed at an independent workstation by the technologist. All CT scans at this location are performed using CT dose reduction for ALARA by means of automated exposure control. COMPARISON: 11/13/2018 FINDINGS: Pulmonary arterial enhancement is normal bilaterally. No evidence of pulmonary embolus. Again noted is a large anterior mediastinal mass causing right lateral displacement of the trachea an d encasing the great vessels. Also there is mediastinal and left axillary adenopathy. Subcutaneous edema is seen in the left lateral chest wall suggesting either occlusion or significant compression of the axillary/subclavian vein. Multiple pulmonary nodules are identified. A moderate size left pleural effusion is present. No destructive skeletal changes. Limited upper abdominal images show multiple hepatic lesions. IMPRESSION: 1. No evidence of acute pulmonary embolism. 2. No interval change in large mediastinal mass, mediastinal and left axillary adenopathy or evidence of pulmonary and hepatic metastasis. 3. Edematous changes in the left anterior chest wall suggesting venous occlusion or compression. 4. Stable left pleural effusion. Signer Name: Michael Diehl MD Signed: 12/19/2018 8:36 AM Workstation Name: [id number]
[2018-12-19 10:07] VITALS: BP 112/72
== END 2018-12-19 10:14 | disposition home or self-care (01) ==
LOC: ED 04:03
DX: C38.3 Malignant neoplasm of mediastinum, part unspecified (principal); J91.0 Malignant pleural effusion; J44.9 Chronic obstructive pulmonary disease, unspecified; E11.9 Type 2 diabetes mellitus without complications; I25.2 Old myocardial infarction; I42.9 Cardiomyopathy, unspecified; I73.9 Peripheral vascular disease, unspecified; Z86.718 Personal history of other venous thrombosis and embolism; Z79.82 Long term (current) use of aspirin; Z95.1 Presence of aortocoronary bypass graft; Z86.73 Personal history of transient ischemic attack (TIA), and cerebral infarction without residual deficits; Z79.84 Long term (current) use of oral hypoglycemic drugs; Z88.5 Allergy status to narcotic agent; Z87.891 Personal history of nicotine dependence
CPT/HCPCS: 36415; 71045; 71275; 80053; 84484; 85025; 85379; 85610; 85730; 93005; 93010; 96374; 99285; G0480; J2270; J7030; Q9967; 80320